=== PATIENT | female | born 1950 | race Caucasian/White ===

== ENCOUNTER 2016-07-03 16:15 | Inpatient (IN) ==
--- NOTE | 2016-07-03 16:21 | Emergency Department Note ---
Disposition Clinical Impression: Influenza A Asthma Qualifiers: Asthma severity: mild intermittent Asthma complication type: with acute exacerbation Qualified Code(s): J45.21 - Mild intermittent asthma with (acute) exacerbation Disposition: Admitted As Inpatient Condition: Fair Referrals: NO,PCP [Primary Care Provider] - Forms: ED Satisfaction Letter SOB HPI - General Chief Complaint: ED Shortness of Breath/Dyspnea Stated Complaint: "fever, sob" Source: patient, EMS Mode of arrival: EMS Nursing Notes Reviewed: Yes Vital Signs Reviewed: Yes - History of Present Illness Pt Subjective Complaint: shortness of breath Onset (ago): week(s) (1) Severity: moderate Consistency/Duration: intermittent, gradually worsening Improves with: oxygen, rest, bronchodilators Worsens with: lying flat Known history of: asthma Associated symptoms: Reports: cough, wheezing. Denies: fever Treatment prior to arrival: oxygen, bronchodilator Cough present: Yes Cough Description: Involuntary Cough Frequency: Intermittent Sputum production: No - Related Data Home Medications Medication Instructions Recorded Confirmed Amiodarone 11/23/14 11/23/14 Carvedilol 11/23/14 11/23/14 Ciclopirox 11/23/14 11/23/14 Desonide 11/23/14 11/23/14 Fluocinonide 11/23/14 11/23/14 Isosorbide Mononitrate 11/23/14 11/23/14 Lipitor 11/23/14 11/23/14 Plavix 11/23/14 11/23/14 TraMADol 11/23/14 11/23/14 Voltaren 11/23/14 11/23/14 HumaLOG 05/22/15 05/22/15 Lantus 05/22/15 Paroxetine 05/22/15 Singulair 05/22/15 Thyroid 05/22/15 Xarelto 05/22/15 Previous Rx's Medication Instructions Recorded MethylPREDNISolone [Medrol] 4 mg PO DAILY 6 Days 05/22/15 Sulfamethoxazole/Trimeth DS 1 each PO BID 7 Days 05/22/15 [Bactrim DS] Allergies Allergy/AdvReac Type Severity Reaction Status Date / Time Amoxicillin [From Augmentin] Allergy Hives Verified 11/23/14 14:53 Barbiturates Allergy Anxiety Verified 11/23/14 14:53 clavulanic acid Allergy Hives Verified 11/23/14 14:53 [From Augmentin] codeine Allergy Anaphylaxis Verified 11/23/14 14:53 Tetracycline Allergy Nausea Verified 11/23/14 14:53 All systems ED: reviewed and negative except as stated. Constitutional: Reports: weakness. Denies: fever, chills Gastrointestinal: Denies: nausea, vomiting Past Medical History - Past Medical History Source: patient, old records reviewed, nursing notes reviewed Medical history: Reports: asthma, diabetes, thyroid disease, valvular heart disease [employer]KING [employer] WORK[employer] history: Reports: non-contributory - Social History Smoking Status: Never smoker Smokeless Tobacco Status: No Alcohol use: Reports: none Physical Exam - General Limitations: no limitations General appearance: alert, in no apparent distress - Head Head exam: atraumatic, normocephalic, normal inspection - Eye Eye exam: Present: normal appearance, PERRL, EOMI - Expanded Eye Exam Pupils: Left: reactive - ENT ENT exam: normal exam, normal oropharynx, mucous membranes moist - Expanded ENT Exam External ear exam: Present: normal external inspection Mouth exam: Present: normal external inspection Teeth exam: Present: normal inspection Throat exam: Present: normal inspection - Neck Neck exam: Present: normal inspection, full ROM, trachea midline - Chest Chest inspection: Present: normal inspection, symmetric chest wall rise - Respiratory Respiratory exam: Present: wheezes (Scattered wheezes rhonchi), prolonged expiratory phase. Absent: respiratory distress - Cardiovascular Cardiovascular exam: Present: tachycardia - Abdominal Exam Abdominal exam: Present: soft, Non-Tender. Absent: tenderness, distention, guarding, rebound, rigidity - Extremities Exam Extremities exam: Present: normal inspection, full ROM. Absent: tenderness, pedal edema - Expanded Upper Extremity Exam Shoulder exam: Present: normal inspection, full ROM Arm exam: Present: normal inspection, full ROM Elbow exam: Present: normal inspection, full ROM Forearm/Wrist exam: Present: normal inspection, full ROM Hand exam: Present: normal inspection, full ROM Vascular exam: Normal: capillary refill, radial pulse - Expanded Lower Extremity Exam Hip/Pelvis exam: Present: normal inspection, full ROM Upper leg exam: Present: normal inspection, full ROM Knee exam: Present: normal inspection, full ROM Lower leg exam: Present: normal inspection, full ROM Ankle exam: Present: normal inspection, full ROM Foot/toe exam: Present: normal inspection, full ROM Neurovascular/Tendon exam: Absent: motor deficit, sensory deficit, tendon deficit - Back Exam Back exam: Present: normal inspection, full ROM. Absent: tenderness - Neurological Exam Neurological exam: Present: alert, oriented X3 - Expanded Neurological Exam Patient oriented to: Present: person, place, time Coma Scale Eye Opening: Spontaneous Coma Scale Motor Response: Obeys Commands Coma Scale Verbal Response: Oriented Coma Scale Total: 15 - Psychiatric Psychiatric exam: Present: normal affect, normal mood - Skin Skin exam: Present: warm, dry, intact, normal color Course Vital Signs Temperature 102.1 F H 07/03/16 16:19 Pulse Rate 119 07/03/16 16:19 Respiratory Rate 22 07/03/16 16:19 Blood Pressure 136/65 07/03/16 16:19 O2 Sat by Pulse Oximetry 94 L 07/03/16 16:19 Temperature 102.1 F H 07/03/16 16:19 Pulse Rate 119 07/03/16 16:19 Respiratory Rate 22 07/03/16 16:19 Blood Pressure 136/65 07/03/16 16:19 O2 Sat by Pulse Oximetry 95 07/03/16 16:19 Oxygen Delivery Oxygen Delivery Nasal Cannula Shortness of Breath/Dyspnea - Differential Diagnosis Likely: acute exacerbation of chronic obstructive airways disease, congestive heart failure, pneumonia, asthma with exacerbation, pulmonary embolism, arrhythmia - Medical Records Medical records reviewed: Yes I reviewed the patient's medical records. - Lab Data Lab results reviewed: Yes I reviewed the patient's lab results. - Radiology Data Radiology results reviewed: Yes I reviewed the patient's radiology results. - EKG Data EKG attestation: Yes I reviewed and interpreted this EKG. EKG shows normal: Reports: sinus rhythm Rate: Reports: tachycardia (128) Rhythm: Reports: NSR, PVC's [place]/QRS: Reports: normal Critical Care Time Critical Care Time: Yes Total Critical Care Time: 35 Attestation: Critical care performed: Time is exclusive of separately billable procedures. Time includes: direct patient care, patient reassessment, coordination of patient care, interpretation of data (laboratory data, radiology data, and respiratory data), review of patient's medical records, medical consultation and documentation of patient care. Procedures included in critical care time: Procedures excluded from critical care time:
[2016-07-03 16:50] LABS: Basophils # 0.1 K/mcL (0.0-0.2); Basophils % 0.6 %; Eosinophils % 0.3 %; Hematocrit 37.4 % (35.3-44.9); Hemoglobin 11.9 g/dL (11.5-15.4); Immature Granulocytes % 0.9 % (0-4); Lymphocytes # 0.7 K/mcL (0.6-4.6); Lymphocytes % 6.7 %; Mean Corpuscular HGB Conc 31.8 g/dL (31.6-35.5); Mean Corpuscular Hemoglobin 26.1 pg (28.0-33.3); Mean Platelet Volume 10.9 fL (9.4-12.4); Monocytes # 1.1 K/mcL (0.0-1.3); Monocytes % 10.9 %; Platelet Count 106 K/mcL (140-400); Red Blood Count 4.56 M/mcL (3.82-4.97); Red Cell Distribution Width 16.8 % (11.5-14.5); Segmented Neutrophils % 80.6 %
[2016-07-03] MEDS ORDERED: Ipratropium/Albuterol Neb 3 ML IH ONE (16:50)
[2016-07-03 17:02] LABS: BUN/Creatinine Ratio 11 (6-26); Blood Urea Nitrogen 8 mg/dL (7-20); Carbon Dioxide 23 mEq/L (19-29); Chloride 94 mEq/L (98-109); Glucose 292 mg/dL (70-99); INR 1.3; Osmolality,Calculated 277 (280-300); Potassium 3.5 mEq/L (3.5-4.5); Prothrombin Time 14.2 Seconds (9.4-12.1); Sodium 129 mEq/L (136-145); eGFR For African Americans > 60 (> 60); eGFR For Non-African Americans > 60 (> 60)
[2016-07-03 17:05] LABS: Activated Partial Thrombo Time 32.7 Seconds (26.0-36.0)
[2016-07-03] MEDS ORDERED: methylPREDNISolone 125 MG/2 ML VIAL IV ONE (17:15)
[2016-07-03] MEDS ORDERED: Aspirin 81 MG TAB.CHEW PO STA (17:18)
[2016-07-03] MEDS ORDERED: Ondansetron 4 MG/2 ML VIAL IVP ONE (17:41)
--- NOTE | 2016-07-03 22:47 | Internal Med History&Physical ---
Date of Encounter: 07/03/16 Time of Encounter: 22:37 Assessment and Plan (1) Asthma Current visit: Yes Status: Acute Acute asthma exacerbation. Likely due to Concomitant infection with influenza virus. No PNEUMONIA IN THE CHEST X-RAY. PATIENT IS FEBRILE AND BP stable. Continue with Tamiflu, continue with management of asthma exacerbation including systemic steroids and nebulizer therapy. Qualifiers: Asthma severity: mild intermittent Asthma complication type: with acute exacerbation Qualified Code(s): J45.21 - Mild intermittent asthma with (acute ) exacerbation (2) Influenza A Current visit: Yes Status: Acute Continue with oxygen therapy when necessary. Continue with Tamiflu. Symptomatic treatment. (3) Elevated troponin Current visit: Yes Status: Acute Mild elevation of troponins, no chest pain. No EKG changes. Patient has history of coronary artery disease and is on anticoagulation with xarelto due to history of atrial fibrillation. Continue monitoring the patient closely. Follow trend of troponin. We will obtain an echocardiogram to evaluate further systolic function. (4) Hyperglycemia Current visit: Yes Status: Acute Insulin therapy. Check A1c. Monitor fingerstick. (5) Hyponatremia Current visit: Yes Status: Acute We will continue monitoring the patient closely. No changes in neurological status. Follow electrolytes daily. Internal Medicine - H&P: HPI Chief complaint: sob Admitted From: Emergency Dept Plans for Post Hospital Care: Home History of present illness: Ms. Armas is a 65 year old female with past medical history of asthma, coronary artery disease, recent dental work, presented to the emergency department complaining of progressive shortness of breath and productive cough, associated with fatigue and generalized weakness. Patient stated that she was having some falls since the last 6 days. Patient denies chills or fever, however states that her shortness of breath was not getting any better. She recently underwent some dental work, has a tooth abscess for which she was on antibiotics, she is significant clindamycin. Patient has never been a smoker, is allergic to penicillin. When she presented to the emergency department she was tachycardic with a heart rate of 114, respiratory rate was 16, oxygen saturation was 97%. Labs revealed a WBC count of 9.9, hemoglobin 11.9, hematocrit 37.4, platelet count was 106,000. Sodium 139, potassium 3.5, chloride 94, WN 8, creatinine 0.74, glucose 292. Troponin was 0.04, the patient denies chest pain. Brain natriuretic peptide was 315. She tested positive for influenza and receive a dose of Tamiflu in the emergency department. She also was given a dose of Solu-Medrol and nebulizer therapy. The patient is alert, awake, oriented. Past Med Surg Social Fam HX - Past Medical History Medical history: asthma, diabetes, thyroid disease, valvular heart disease Psychiatric history: anxiety, depression - Social History Smoking Status: Never smoker Smokeless Tobacco Status: No Alcohol use: none Drug use: none Internal Medicine - H&P: Meds Amiodarone 11/23/14 [History] Carvedilol 11/23/14 [History] Ciclopirox 11/23/14 [History] Desonide 11/23/14 [History] Fluocinonide 11/23/14 [History] Isosorbide Mononitrate 11/23/14 [History] Lipitor 11/23/14 [History] Plavix 11/23/14 [History] TraMADol 11/23/14 [History] Voltaren 11/23/14 [History] HumaLOG 05/22/15 [History] Lantus 05/22/15 [History] MethylPREDNISolone [Medrol] 4 mg PO DAILY 6 Days 05/22/15 [Rx] Paroxetine 05/22/15 [History] Singulair 05/22/15 [History] Sulfamethoxazole/Trimeth DS [Bactrim DS] 1 each PO BID 7 Days 05/22/15 [Rx] Thyroid 05/22/15 [History] Xarelto 05/22/15 [History] Allergies Amoxicillin [From Augmentin] Allergy (Verified 11/23/14 14:53) Hives Barbiturates Allergy (Verified 11/23/14 14:53) Anxiety clavulanic acid [From Augmentin] Allergy (Verified 11/23/14 14:53) Hives codeine Allergy (Verified 11/23/14 14:53) Anaphylaxis Tetracycline Allergy (Verified 11/23/14 14:53) Nausea All Systems PM: A 10-system review of systems was performed and is negative for pertinent findings except as documented above in the HPI. - Constitutional Constitutional: as per HPI, falls, malaise, no chills, no fever(s), no night sweats - EENT Eyes: as per HPI, no change in vision, no discharge, no pain, no photophobia Ears: as per HPI, no ear discharge, no ear pain, no tinnitus Nose, mouth and throat: as per HPI, no dysphagia, no nasal discharge, no neck pain, no sore throat - Breasts Breasts: as per HPI - Cardiovascular Cardiovascular ROS IM: as per HPI, no chest pain, no diaphoresis, no dyspnea, no lightheadedness, no palpitations, no syncope - Respiratory Respiratory: as per HPI, cough, dyspnea, dyspnea on exertion, wheezing, no excessive phlegm production - Gastrointestinal Gastrointestinal: as per HPI, no abdominal pain, no diarrhea, no hematemesis, no hematochezia, no melena, no nausea, no vomiting - Genitourinary Genitourinary: as per HPI, no change in urinary stream, no dysuria, no flank pain, no hematuria Menstruation: as per HPI - Musculoskeletal Musculoskeletal ROS IM: as per HPI, no numbness, no tingling - Integumentary Integumentary IM: no rash, no unusual bruising - Neurological Neurological ROS: as per HPI, no confusion, no convulsions, no focal weakness, no numbness, no tingling, no tremor(s) - Hematologic/Lymphatic Hematologic/Lymphatic: no easy bruising - Constitutional Vitals: Temp Pulse Resp BP Pulse Ox 98.1 F 107 22 110/61 95 07/03/16 19:52 07/03/16 19:52 07/03/16 19:52 07/03/16 19:52 07/03/16 19:52 General appearance: Present: cooperative, mild distress, A&O X 3, pleasant - Head Head exam: Present: atraumatic, normocephalic - Eye Eye exam: Present: PERRL, conjuntiva pink, sclera anicteric Pupils: Present: PERRL - Neck Neck exam general surgery: Present: supple, trachea midline. Absent: lymphadenopathy - Respiratory Respiratory exam: Present: decreased breath sounds, wheezes. Absent: accessory muscle use, rales, rhonchi - Cardiovascular Cardiovascular exam: Present: RRR, +S1, +S2. Absent: diastolic murmur, gallop, rubs, systolic murmur - GI/Abdominal GI/Abdominal exam: Present: normal bowel sounds, soft, no peritoneal signs. Absent: distended, tenderness - Extremities Exam Extremities exam: Present: warm, radial pulses palpable and symetrical. Absent : calf tenderness, cyanotic, pedal edema - Neurological Exam Neurological exam: Present: CN II-XII intact, oriented X3, no focal deficits. Absent: pronater drift, facial droop, speech deficit - Skin Skin exam: Present: dry, intact Internal Med - H&P Results - Labs CBC & Chem 7: 07/03/16 16:37 07/03/16 16:37
[2016-07-03] MEDS ORDERED: Albuterol 2.5 MG/3 ML NEBULIZER IH PRN (23:10)
[2016-07-03] MEDS ORDERED: Acetaminophen 325 MG TABLET PO PRN (23:10)
[2016-07-03] MEDS ORDERED: Ondansetron 4 MG/2 ML VIAL IVP PRN (23:10)
[2016-07-03] MEDS ORDERED: *HR* Morphine 2 MG/ML SYRINGE IVP PRN (23:10)
[2016-07-03] MEDS ORDERED: Naloxone 0.4 MG/ML INJ IVP PRN (23:10)
[2016-07-03] MEDS ORDERED: Dextrose Gel 15 GM PO PRN ×2 (23:29)
[2016-07-03] MEDS ORDERED: D5% in Water 1,000 ML IVC PRN (23:29)
[2016-07-03] MEDS ORDERED: *HR* Dextrose 50 % in Water (Syg) 50 ML SYRINGE IVP PRN (23:29)
[2016-07-04] MEDS: MethylPREDNISolone 40 MG/ML VIAL IVP SCH ×3 (00:30→14:35)
[2016-07-04 01:18] LABS: Hemoglobin A1C 10.1 %
[2016-07-04 01:23] LABS: Alanine Aminotransferase 17 Units/L (0-55); Albumin 2.9 g/dL (3.5-5.0); Albumin/Globulin Ratio 0.7 (1.1-2.2); Alkaline Phosphatase 81 Units/L (38-126); Aspartate Amino Transferase 19 Units/L (5-34); BUN/Creatinine Ratio 12 (6-26); Bilirubin,Total 1.2 mg/dL (0.2-1.2); Blood Urea Nitrogen 13 mg/dL (7-20); Calcium 8.9 mg/dL (8.6-10.8); Carbon Dioxide 22 mEq/L (19-29); Chloride 93 mEq/L (98-109); Globulin 4.1 g/dL (2.4-3.5); Magnesium 1.2 mg/dL (1.6-2.6); Osmolality,Calculated 297 (280-300); Potassium 4.2 mEq/L (3.5-4.5); Sodium 130 mEq/L (136-145); eGFR For African Americans > 60 (> 60); eGFR For Non-African Americans 52 (> 60)
[2016-07-04 01:33] LABS: Glucose 586 mg/dL (70-99)
[2016-07-04] MEDS: Insulin LISPRO 300 UNITS/3 ML VIAL SQ SCH ×3 (03:39→16:37)
[2016-07-04] MEDS ORDERED: Insulin LISPRO 300 UNITS/3 ML VIAL SQ SCH ×3 (07:30→21:00)
[2016-07-04] MEDS ORDERED: *HR* Amiodarone 200 MG TABLET PO SCH (09:00)
[2016-07-04] MEDS ORDERED: Insulin DETEMIR 100 UNIT/ML X5UNITS SQ SCH ×2 (09:00→21:00)
[2016-07-04 09:20] LABS: Basophils % 0.3 %; Hematocrit 41.4 % (35.3-44.9); Hemoglobin 12.9 g/dL (11.5-15.4); Immature Granulocytes % 0.6 % (0-4); Immature Platelets 17.8 % (1.1-6.1); Lymphocytes # 0.8 K/mcL (0.6-4.6); Lymphocytes % 7.9 %; Mean Corpuscular HGB Conc 31.2 g/dL (31.6-35.5); Mean Corpuscular Hemoglobin 26.2 pg (28.0-33.3); Mean Corpuscular Volume 84.1 fL (83.0-100.0); Mean Platelet Volume 11.3 fL (9.4-12.4); Monocytes # 0.5 K/mcL (0.0-1.3); Monocytes % 5.2 %; Neutrophils # 8.2 K/mcL (1.6-8.9); Red Blood Count 4.92 M/mcL (3.82-4.97); Red Cell Distribution Width 17.2 % (11.5-14.5)
[2016-07-04 12:30] LABS: Mean Platelet Volume 10.7 fL (9.4-12.4)
[2016-07-04] MEDS: Oseltamivir Phosphate 30 MG CAPSULE PO SCH ×2 (14:34→22:00)
[2016-07-04] MEDS ORDERED: Perflutren Lipid Microsphere 1.3 ML in 0.9 % Sodium Chloride 8.7 ML IVP ONE (14:47)
--- NOTE | 2016-07-04 16:37 | ECHO - Doppler Report ---
Echo with Imaging Enhancement Agent Name: Cecilia Armas Date of Study: 07/04/2016 Date: 1950 Ht: 66.0 in Medical Record#: [id number] Age: 65 Wt: 285.0 lb Gender: Female BSA: 2.33 Order #: [id number] Location: [facility] Room #: 2NE26 Reading Physician: Cain Germain MD, [facility] Learning Support Aide: BENITO BashirT, [facility] Ordering Physician: Massimo Florentino MD Primary Physician: Arnulfo Arango MD Indications: elvated trops, H/o CHF Impressions: LVEF 60%. There is hypokinesis of the basal inferior wall. All other segments demonstrate normal contractility. Mild concentric left ventricular hypertrophy. Moderate left ventricular diastolic dysfunction. Normal right ventricular size and function. Moderately dilated left atrium. No significant valvular dysfunction. Unable to estimate RVSP due to lack of TR jet. Left Ventricular Wall Motion: Rest Echo Findings The basal inferior wall was hypokinetic. All other wall segments showed normal motion. Findings: Study Quality * Suboptimal echo windows. Echo contrast was used. ECG Findings * Normal sinus rhythm. Left Ventricle * LVEF 60%. There is hypokinesis of the basal inferior wall. All other segments demonstrate normal contractility. * Mild concentric left ventricular hypertrophy. * Moderate left ventricular diastolic dysfunction. Right Ventricle * Normal right ventricular size and function. Left Atrium * Moderately dilated left atrium. Right Atrium * Normal right atrial size. Aorta * Normally sized aortic root. Pericardium * There is no pericardial effusion present. IVC * The IVC is mildly dilated. Aortic Valve * Trileaflet aortic valve. * Mild-moderately sclerotic aortic valve leaflets. * No aortic stenosis. * No aortic regurgitation. Mitral Valve * Moderate mitral annular calcification * No mitral stenosis. * Trace mitral regurgitation. Tricuspid Valve * Tricuspid valve not well visualized. * No tricuspid stenosis. * Trace tricuspid regurgitation. * Unable to estimate RVSP due to lack of TR jet. Pulmonic Valve * Pulmonic valve not well visualized. * No pulmonic stenosis. * No pulmonic regurgitation. History Hypertension Diabetes Hypercholesteremia Family History of CAD History of CAD/PTCA Myocardial Infarction 10/09/2014 a Previous Echo was performed. Contrast: Definity 1.3 ml in 8.7 ml of saline 3 ml. Measurements: BP: 129/ 84 2D Normal Values RVIDd: 3.40 cm IVSd: 1.30 cm 0.6 - 1.0 cm LVIDd: 4.30 cm 3.7 - 5.6 cm LVPWd: 1.20 cm 0.6 - 1.1 cm LVIDs: 3.10 cm 1.5 - 3.6 cm AO: 3.20 cm < 4.0 cm %FS: 27.90 cm >25 % LA volume: 97 Mitral Valve Peak E:1.30 m/sec Peak A:1.51 m/sec E/A Ratio:0.9 Peak E' Lat Andrew:5.17 cm/s Peak E' Med Andrew:5.36 cm/s E/E' Lat Ratio:25.1 E/E' Med Ratio:24.3 Updated by Cain Germain MD, [facility] on 07/04/2016 4:32:52 PM electronically signed on 07/04/2016 4:33:37 PM with status of Final Wall Motion [place]: 1=Normal, 2=Hypokinesis, 3=Akinesis, 4=Dyskinesis, 5=Aneurysmal, 6=Hyperkinetic, X=Not Visualized (Blank)=Missing
[2016-07-04] MEDS ORDERED: *HR* Rivaroxaban 10 MG TABLET PO SCH (17:00)
--- NOTE | 2016-07-04 19:00 | Internal Med Progress Note ---
Date of Encounter: 07/04/16 Time of Encounter: 18:58 - Assessment and plan (1) Asthma exacerbation Current Visit: Yes Status: Acute Assessment and plan: IV Solu-Medrol. We will increase to every 6 hours. Add albuterol inhaled every 4 hours. Continue with albuterol as needed every 2 hours. Restart his home Singulair. (2) Diabetes mellitus type 2, insulin dependent Current Visit: Yes Status: Acute Assessment and plan: Diabetes uncontrolled with glucoses in the 5 and 600s likely exacerbated by high -dose steroids. We will increase the Levemir to 30 units twice a day. Continue with the meal insulin coverage and sliding scale correction schedule. (3) Influenza A Current Visit: Yes Status: Acute Assessment and plan: On Tamiflu. Continue this. Droplet precautions. (4) Elevated troponin Current Visit: Yes Status: Acute Assessment and plan: Likely secondary to viral infection. Troponin trended down to normal. Echocardiogram reveals normal ejection fraction of 60%. (5) Hyperglycemia Current Visit: Yes Status: Acute (6) Hyponatremia Current Visit: Yes Status: Acute Assessment and plan: We will monitor sodium levels with correction of glucose. - Subjective Interval history: Patient reports moderate shortness of breath at rest, slightly improved from yesterday, associated with cough productive of clear, no fever. The symptoms have improved very slightly since yesterday but she is still symptomatic at rest. - Constitutional Vitals: Temp Pulse Resp BP Pulse Ox 97.8 F 100 17 168/93 94 L 07/04/16 16:00 07/04/16 15:00 07/04/16 15:00 07/04/16 15:00 07/04/16 15:00 General appearance: Present: cooperative, mild distress, A&O X 3, pleasant, obese - Eye Eye exam: Present: PERRL, conjuntiva pink, sclera anicteric Pupils: Present: PERRL - Respiratory Respiratory exam: Present: wheezes. Absent: accessory muscle use, rales, rhonchi Additional comments: Bilateral expiratory wheezes - Cardiovascular Cardiovascular exam: Present: RRR, +S1, +S2. Absent: diastolic murmur, gallop, rubs, systolic murmur - GI/Abdominal GI/Abdominal exam: Present: normal bowel sounds, soft, no peritoneal signs. Absent: distended, tenderness - Extremities Exam Extremities exam: Present: warm, radial pulses palpable and symetrical. Absent : calf tenderness, cyanotic, pedal edema - Skin Skin exam: Present: dry, intact Internal Medicine: Result - Labs CBC & Chem 7: 07/04/16 08:21 07/04/16 00:46 Labs: Short CBC 07/04/16 Range/Units 08:21 WBC 9.5 (4.3-11.1) K/mcL Hgb 12.9 (11.5-15.4) g/dL Hct 41.4 (35.3-44.9) % Plt Count TNP Neutrophils # 8.2 (1.6-8.9) K/mcL BMP 07/04/16 00:46 Sodium 130 L Potassium 4.2 Chloride 93 L Carbon Dioxide 22 BUN 13 Creatinine 1.05 Glucose 586 H* Calcium 8.9 Cardiac Enzymes 07/04/16 07/04/16 Range/Units 00:46 06:39 Troponin I 0.03 0.00 (0-0.03) ng/mL Liver Function 07/04/16 Range/Units 00:46 Total Bilirubin 1.2 (0.2-1.2) mg/dL AST 19 (5-34) Units/L ALT 17 (0-55) Units/L Alkaline Phosphatase 81 (38-126) Units/L Albumin 2.9 L (3.5-5.0) g/dL - ABG Interpretation ABG results: PT/INR, D-dimer PT 14.2 Seconds (9.4-12.1) H 07/03/16 16:37 Consult Discharge Plan - Plan Referrals: Arnulfo Arango Jr, MD [Primary Care Provider] -
[2016-07-04] MEDS: Albuterol 2.5 MG/3 ML NEBULIZER IH SCH ×3 (21:00→23:48)
[2016-07-04] MEDS: Insulin DETEMIR 100 UNIT/ML X5UNITS SQ SCH (21:53)
[2016-07-04] MEDS: Aspirin Enteric Coated 81 MG Tablet PO SCH (21:54)
[2016-07-05] MEDS: MethylPREDNISolone 40 MG/ML VIAL IVP SCH ×3 (00:18→12:29)
[2016-07-05] MEDS: Albuterol 2.5 MG/3 ML NEBULIZER IH SCH ×4 (04:16→14:49)
[2016-07-05] MEDS ORDERED: traMADol 50 MG TABLET PO PRN (05:01)
--- NOTE | 2016-07-05 06:19 | Electrocardiograph Report ---
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
[2016-07-05 06:50] VITALS: BP 149/83
[2016-07-05] MEDS: Insulin LISPRO 300 UNITS/3 ML VIAL SQ SCH ×2 (08:21→12:25)
[2016-07-05] MEDS: Oseltamivir Phosphate 30 MG CAPSULE PO SCH (08:22)
[2016-07-05] MEDS: Aspirin Enteric Coated 81 MG Tablet PO SCH (08:23)
[2016-07-05] MEDS: Insulin DETEMIR 100 UNIT/ML X5UNITS SQ SCH (08:25)
[2016-07-05 08:46] LABS: BUN/Creatinine Ratio 29 (6-26); Blood Urea Nitrogen 26 mg/dL (7-20); Calcium 9.5 mg/dL (8.6-10.8); Carbon Dioxide 25 mEq/L (19-29); Chloride 99 mEq/L (98-109); Glucose 399 mg/dL (70-99); Osmolality,Calculated 305 (280-300); Potassium 4.3 mEq/L (3.5-4.5); Sodium 137 mEq/L (136-145); eGFR For African Americans > 60 (> 60); eGFR For Non-African Americans > 60 (> 60)
[2016-07-05] MEDS ORDERED: Isosorbide MONOnitrate (24 HR) 60 MG TAB.ER.24H PO SCH (09:00)
[2016-07-05 09:53] LABS: Basophils % 0.1 %; Hematocrit 38.1 % (35.3-44.9); Hemoglobin 11.7 g/dL (11.5-15.4); Immature Granulocytes % 1.2 % (0-4); Immature Platelets 10.9 % (1.1-6.1); Lymphocytes # 0.8 K/mcL (0.6-4.6); Lymphocytes % 5.4 %; Mean Corpuscular HGB Conc 30.7 g/dL (31.6-35.5); Mean Corpuscular Hemoglobin 25.9 pg (28.0-33.3); Mean Corpuscular Volume 84.3 fL (83.0-100.0); Monocytes # 0.6 K/mcL (0.0-1.3); Monocytes % 3.8 %; Red Blood Count 4.52 M/mcL (3.82-4.97); Red Cell Distribution Width 17.1 % (11.5-14.5); Segmented Neutrophils % 89.5 %
[2016-07-05 10:04] LABS: Mean Platelet Volume 10.1 fL (9.4-12.4)
--- NOTE | 2016-07-05 13:01 | Discharge Summary ---
Date of Encounter: 07/05/16 Time of Encounter: 12:55 - Discharge Diagnosis (1) Asthma exacerbation Priority: Primary Status: Acute (2) Diabetes mellitus type 2, insulin dependent Priority: Secondary Status: Acute (3) Influenza A Priority: Secondary Status: Acute (4) Elevated troponin Priority: Secondary Status: Acute (5) Hyperglycemia Priority: Secondary Status: Acute (6) Hyponatremia Priority: Secondary Status: Acute - Discharge Medications Prescriptions: Albuterol Neb [Proventil Neb] 2.5 mg IH Q4HR #60 inhsol Oseltamivir Phosphate [Tamiflu] 30 mg PO BID #6 capsule PredniSONE [Prednisone] 40 mg PO DAILY #18 tab.ds.pk Home Medications: Atorvastatin Calcium [Lipitor] 80 mg PO DAILY 11/23/14 [History] Carvedilol 3.125 mg PO BID 11/23/14 [History] Tramadol HCl [Ultram] 50 - 100 mg PO QID 11/23/14 [History] Levothyroxine [Synthroid] 50 mcg PO DAILY 05/22/15 [History] Montelukast [Singulair] 10 mg PO DAILY 05/22/15 [History] Paroxetine HCl [Paxil] 20 mg PO DAILY 05/22/15 [History] Rivaroxaban [Xarelto] 20 mg PO DAILY 05/22/15 [History] Albuterol Sulfate [Ventolin Hfa] 1 puff IH Q6H 07/04/16 [History] Aspirin [Lo-Dose Aspirin EC] 81 mg PO DAILY 07/04/16 [History] Cholecalciferol (D-3) [Vitamin D] 1,000 unit PO DAILY 07/04/16 [History] Cyclobenzaprine [Flexeril] 20 mg PO HS 07/04/16 [History] Insulin LISPRO [HumaLOG] 40 units SQ TIDWM 07/04/16 [History] Isosorbide MONOnitrate (24 HR) [Imdur] 60 mg PO DAILY 07/04/16 [History] Lansoprazole [Prevacid] 30 mg PO DAILY 07/04/16 [History] Multivitamin,Ther and Minerals [Super Theravite-M] 1 tab PO DAILY 07/04/16 [ History] Potassium Chloride [K-Tab ER] 40 meq PO DAILY 07/04/16 [History] Vitamin B Complex [B Complex] 1 tab PO DAILY 07/04/16 [History] Albuterol Neb [Proventil Neb] 2.5 mg IH Q4HR #60 inhsol 07/05/16 [Rx] Oseltamivir Phosphate [Tamiflu] 30 mg PO BID #6 capsule 07/05/16 [Rx] PredniSONE [Prednisone] 40 mg PO DAILY #18 tab.ds.pk 07/05/16 [Rx] Allergies/Adverse Reactions: Allergies Amoxicillin [From Augmentin] Allergy (Verified 11/23/14 14:53) Hives Barbiturates Allergy (Verified 11/23/14 14:53) Anxiety clavulanic acid [From Augmentin] Allergy (Verified 11/23/14 14:53) Hives codeine Allergy (Verified 11/23/14 14:53) Anaphylaxis Tetracycline Allergy (Verified 11/23/14 14:53) Nausea Procedures/tests Complete & Pending: Procedures Performed prior 72 hours Category Date Time Status EV echocardiogram w enhance Routine Y 07/04/16 08:00 Completed Date of admission: 07/03/16 23:10 Primary care physician: Arnulfo Arango Jr, MD - Patient Status Disposition: Home, Self-Care Condition: Fair Functional capacity at discharge: independent ambulation Overall status at discharge: patient is progressing back to baseline - Discharge Instructions Follow Up With: Arnulfo Arango Jr, MD [Primary Care Provider] - (One to two weeks after discharge.) Natalee Krishnan DO [Partnered Physician] - () - Diet and Activity Activity: increase activity as tolerated Diet: diabetic diet, low fat, low cholesterol, low salt diet Hospital course: Hospital presentation: Ms. Armas is a 65 year old female with past medical history of asthma, coronary artery disease, recent dental work, presented to the emergency department complaining of progressive shortness of breath and productive cough, associated with fatigue and generalized weakness. Patient stated that she was having some falls since the last 6 days. Patient denies chills or fever, however states that her shortness of breath was not getting any better. She recently underwent some dental work, has a tooth abscess for which she was on antibiotics, she is significant clindamycin. Patient has never been a smoker, is allergic to penicillin. When she presented to the emergency department she was tachycardic with a heart rate of 114, respiratory rate was 16, oxygen saturation was 97%. Labs revealed a WBC count of 9.9, hemoglobin 11.9, hematocrit 37.4, platelet count was 106,000. Sodium 139, potassium 3.5, chloride 94, WN 8, creatinine 0.74, glucose 292. Troponin was 0.04, the patient denies chest pain. Brain natriuretic peptide was 315. She tested positive for influenza and receive a dose of Tamiflu in the emergency department. She also was given a dose of Solu-Medrol and nebulizer therapy. Hospital course: She was admitted to the medical service. She was treated with IV methylprednisolone and oral Tamiflu. She was maintained on a pullman car clerk. She had follow-up troponin level which was 0.0. She had an echocardiogram which revealed an ejection fraction of 60% and mild hypokinesis of the inferior wall. Moderate diastolic dysfunction. She required multiple doses of inhaled albuterol to control her asthma symptoms, but currently reports significant improvement of shortness of breath and decreasing wheezing. She is breathing comfortably on room air her oxygen saturation is within normal limits. Her diabetes is poorly controlled and was rampant during this admission due to treatment with high-dose steroids. She received insulin long- acting and short-acting pre-meal, and coverage. Her hemoglobin A1c is 10.1. She will be discharged home to complete 5 days of Tamiflu. - Time Spent with Patient Total time spent providing and/or coordinating discharge services: - Constitutional Vitals: Temp Pulse Resp BP Pulse Ox 97.4 F L 78 18 149/83 95 07/05/16 06:46 07/05/16 06:46 07/05/16 06:46 07/05/16 06:46 07/05/16 09:00 General appearance: Present: cooperative, mild distress, A&O X 3, pleasant, obese - Respiratory Respiratory exam: Present: wheezes (Scattered fine expiratory wheezes bilaterally). Absent: accessory muscle use, rales, rhonchi - Cardiovascular Cardiovascular exam: Present: RRR, +S1, +S2. Absent: diastolic murmur, gallop, rubs, systolic murmur - GI/Abdominal GI/Abdominal exam: Present: normal bowel sounds, soft, no peritoneal signs. Absent: distended, tenderness
--- NOTE | 2016-07-06 08:11 | Electrocardiograph Report ---
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
== END 2016-07-05 16:15 | disposition home or self-care (01) | DRG 202 ==
LOC: EMEROO 16:15 → 2NENU 16:15
PROVIDERS: ADMIT Nurse Practitioner Family; ATTEND Internal Medicine

== ENCOUNTER 2016-07-13 20:13 | Inpatient (IN) ==
--- NOTE | 2016-07-13 20:59 | Emergency Department Note ---
Disposition Clinical Impression: Atrial fibrillation with RVR, Hyponatremia, Elevated troponin Disposition: Admitted As Inpatient Condition: Good Time of Disposition: 21:16 Arrhythmia/Palpitations HPI - General Chief Complaint: ED Arrhythmia/Palpitations Stated Complaint: A-FIB Time Seen by Provider: 07/13/16 20:26 Source: EMS Limitations: no limitations Nursing Notes Reviewed: Yes Vital Signs Reviewed: Yes - History of Present Illness HPI Narrative: Patient is a 65-year-old female who presents to the [facility] ED with a chief complaint of generalized weakness. Patient states her symptoms started approximately 2 weeks ago with the flu. She was diagnosed with influenza A. States she has just felt generally weak and over the last few days has had exertional weakness. Denies any nausea, vomiting, fever or chills. No chest pain. Patient has had some shortness of breath with this. No abdominal pain. No problems with urination or bowel movements. Patient was initially seen at the urgent care on [facility] and sent over when she was found to be in a fib with rvr. Patient denies any prior history of this, however, she is on xarelto ever since an incident that happened 2 years ago while she was getting her heart catheterization and stent placement. States she has been on this blood thinner ever since then. Apparently, she had gone into atrial fibrillation during this procedure but had converted spontaneously. Patient follows with car shunter Dr. Arreola. Pt Subjective Complaint: atrial fibrillation Onset (ago): unknown Duration: constant Severity: moderate Context: occurred during exertion Arrhythmia History: atrial fibrillation (once during stent placement) Associated symptoms: Reports: shortness of breath. Denies: chest pain, nausea, vomiting, cough - Related Data Home Medications Medication Instructions Recorded Confirmed Atorvastatin Calcium [Lipitor] 80 mg PO DAILY 11/23/14 07/13/16 Carvedilol 3.125 mg PO BID 11/23/14 07/13/16 Tramadol HCl [Ultram] 50 - 100 mg PO QID 11/23/14 07/13/16 Levothyroxine [Synthroid] 50 mcg PO DAILY 05/22/15 07/13/16 Montelukast [Singulair] 10 mg PO DAILY 05/22/15 07/13/16 Paroxetine HCl [Paxil] 20 mg PO DAILY 05/22/15 07/13/16 Rivaroxaban [Xarelto] 20 mg PO DAILY 05/22/15 07/13/16 Albuterol Sulfate [Ventolin Hfa] 1 puff IH Q6H PRN 07/04/16 07/13/16 Aspirin [Lo-Dose Aspirin EC] 81 mg PO DAILY 07/04/16 07/13/16 Cyclobenzaprine [Flexeril] 20 mg PO HS 07/04/16 07/13/16 Insulin LISPRO [HumaLOG] 40 units SQ TIDWM 07/04/16 07/13/16 Isosorbide MONOnitrate (24 HR) 60 mg PO DAILY 07/04/16 07/13/16 [Imdur] Potassium Chloride [K-Tab ER] 40 meq PO DAILY 07/04/16 07/13/16 Ciclopirox Olamine [Ciclopirox] 1 appl TP BID 07/13/16 07/13/16 PredniSONE [Prednisone] 40 mg PO AD 07/13/16 07/13/16 Previous Rx's Medication Instructions Recorded Albuterol Neb [Proventil Neb] 2.5 mg IH Q4HR #60 inhsol 07/05/16 Allergies Allergy/AdvReac Type Severity Reaction Status Date / Time Amoxicillin [From Augmentin] Allergy Hives Verified 07/13/16 20:49 Barbiturates Allergy Anxiety Verified 07/13/16 20:49 clavulanic acid Allergy Hives Verified 07/13/16 20:49 [From Augmentin] codeine Allergy Anaphylaxis Verified 07/13/16 20:49 Tetracycline Allergy Nausea Verified 07/13/16 20:49 All systems ED: reviewed and negative except as stated. Past Medical History - Past Medical History Attestation: Yes The following information was validated with the patient. Source: patient Medical history: Reports: asthma, atrial fibrillation, coronary artery disease, diabetes, myocardial infarction, other Psychiatric history: Reports: anxiety, depression PILOT SUBMERSIBLE history: Reports: non-contributory - Social History Smoking Status: Never smoker Smokeless Tobacco Status: No Alcohol use: Reports: none Drug use: Reports: none Physical Exam - General Limitations: no limitations General appearance: alert - Head Head exam: atraumatic, normocephalic, normal inspection - Eye Eye exam: Present: normal appearance, PERRL, EOMI - ENT ENT exam: normal exam, normal oropharynx, mucous membranes moist - Neck Neck exam: Present: normal inspection, full ROM, trachea midline - Chest Chest inspection: Present: normal inspection, symmetric chest wall rise - Respiratory Respiratory exam: Present: normal lung sounds bilaterally - Cardiovascular Cardiovascular exam: Present: tachycardia, irregular rhythm - Abdominal Exam Abdominal exam: Present: soft, Non-Tender. Absent: tenderness, distention, guarding, rebound, rigidity - Extremities Exam Extremities exam: Present: normal inspection, full ROM. Absent: tenderness, pedal edema - Back Exam Back exam: Present: normal inspection, full ROM. Absent: tenderness - Neurological Exam Neurological exam: Present: alert, oriented X3 - Psychiatric Psychiatric exam: Present: normal affect, normal mood - Skin Skin exam: Present: warm, dry, intact, normal color Course Course Narrative: Patient seen and examined. Atrial fibrillation with RVR. Patient states this is new for her though she is on xarelto for what seems like a similar incident a few years back. Cardiopulmonary workup initiated. We will give 20 mg IV bolus Cardizem. We will start a drip if it does not improve. We will likely admit to hospitalist for A. fib with RVR. - Reevaluation(s) Reevaluation #1: Patient's lab work shows elevated troponin of 0.08. Chest x-ray shows mild pulmonary edema. Also hyponatremia with a sodium of 129. 1 L fluid bolus ordered. After IV Cardizem bolus, patient continues to be in A. fib with RVR with a rate in the 1:15. Cardizem drip ordered. We will admit for atrial fibrillation with RVR. Hospitalist paged. Time: 22:32 Vital Signs Temperature 99.7 F H 07/13/16 20:21 Pulse Rate 124 07/13/16 20:21 Respiratory Rate 20 07/13/16 20:21 Blood Pressure 133/95 07/13/16 20:21 O2 Sat by Pulse Oximetry 94 07/13/16 20:21 Temperature 97.9 F 07/14/16 01:22 Pulse Rate 88 07/14/16 01:22 Respiratory Rate 18 07/14/16 01:22 Blood Pressure 104/69 07/14/16 01:22 O2 Sat by Pulse Oximetry 93 07/14/16 01:22 Oxygen Delivery Oxygen Delivery Nasal Cannula Arrhythmia/Palpitations - Medical Records Medical records reviewed: Yes I reviewed the patient's medical records. - Lab Data Lab results reviewed: Yes I reviewed the patient's lab results. Result diagrams: 07/13/16 20:47 07/13/16 20:47 Lab Results 07/13/16 07/13/16 07/13/16 Range/Units 20:47 20:47 20:47 WBC 19.4 H (4.3-11.1) K/mcL RBC 4.53 (3.82-4.97) M/mcL Hgb 11.7 (11.5-15.4) g/dL Hct 37.4 (35.3-44.9) % MCV 82.6 L (83.0-100.0) fL MCH 25.8 L (28.0-33.3) pg MCHC 31.3 L (31.6-35.5) g/dL RDW 16.6 H (11.5-14.5) % Plt Count 243 (140-400) K/mcL MPV 10.1 (9.4-12.4) fL Immature Gran % 2.1 (0-4) % Seg Neutrophils % 82.0 % Lymphocytes % 8.8 % Monocytes % 6.3 % Eosinophils % 0.4 % Basophils % 0.4 % Neutrophils # 15.9 H (1.6-8.9) K/mcL Lymphocytes # 1.7 (0.6-4.6) K/mcL Monocytes # 1.2 (0.0-1.3) K/mcL Eosinophils # 0.1 (0.0-0.6) K/mcL Basophils # 0.1 (0.0-0.2) K/mcL Nucleated RBCs/100 WBC 0.2 H (0) /100 WBC Immature Plt Fraction 13.5 H (1.1-6.1) % PT 15.8 H (9.4-12.1) Seconds INR 1.5 APTT 28.0 (26.0-36.0) Seconds Sodium 129 L (136-145) mEq/L Potassium 4.1 (3.5-4.5) mEq/L Chloride 93 L (98-109) mEq/L Carbon Dioxide 22 (19-29) mEq/L BUN 10 (7-20) mg/dL Creatinine 0.88 (0.57-1.11) mg/dL Est GFR ( Amer) > 60 (> 60) Est GFR (Non-Af Amer) > 60 (> 60) BUN/Creatinine Ratio 11 (6-26) Glucose 393 H (70-99) mg/dL Calculated Osmolality 283 (280-300) Calcium 9.0 (8.6-10.8) mg/dL Magnesium 1.4 L (1.6-2.6) mg/dL Troponin I (0-0.03) ng/mL TSH 0.686 (0.350-4.840) mcIU/mL 07/13/16 Range/Units 20:47 WBC (4.3-11.1) K/mcL RBC (3.82-4.97) M/mcL Hgb (11.5-15.4) g/dL Hct (35.3-44.9) % MCV (83.0-100.0) fL MCH (28.0-33.3) pg MCHC (31.6-35.5) g/dL RDW (11.5-14.5) % Plt Count (140-400) K/mcL MPV (9.4-12.4) fL Immature Gran % (0-4) % Seg Neutrophils % % Lymphocytes % % Monocytes % % Eosinophils % % Basophils % % Neutrophils # (1.6-8.9) K/mcL Lymphocytes # (0.6-4.6) K/mcL Monocytes # (0.0-1.3) K/mcL Eosinophils # (0.0-0.6) K/mcL Basophils # (0.0-0.2) K/mcL Nucleated RBCs/100 WBC (0) /100 WBC Immature Plt Fraction (1.1-6.1) % PT (9.4-12.1) Seconds INR APTT (26.0-36.0) Seconds Sodium (136-145) mEq/L Potassium (3.5-4.5) mEq/L Chloride (98-109) mEq/L Carbon Dioxide (19-29) mEq/L BUN (7-20) mg/dL Creatinine (0.57-1.11) mg/dL Est GFR ( Amer) (> 60) Est GFR (Non-Af Amer) (> 60) BUN/Creatinine Ratio (6-26) Glucose (70-99) mg/dL Calculated Osmolality (280-300) Calcium (8.6-10.8) mg/dL Magnesium (1.6-2.6) mg/dL Troponin I 0.08 H* (0-0.03) ng/mL TSH (0.350-4.840) mcIU/mL - Radiology Data Radiology results reviewed: Yes I reviewed the patient's radiology results. Chest X-Ray 07/13/16 20:26 IMPRESSION: 1. Re- demonstration of cardiomegaly and mild central pulmonary vascular congestion without overt pulmonary edema. D/ / Silvano Correa MD / Silvano Correa MD Interpreting Provider: Silvano Correa MD - EKG Data EKG attestation: Yes I reviewed and interpreted this EKG. EKG results narrative: EKG done at 2032 shows atrial fibrillation with RVR. No acute ST elevation or depression. Prominent Q-wave in lead 3. Attestation Statement - Attestation Attestation: I, Umesh Henson, examined this patient and my medical decision-making was reviewed with the PODODERMATOLOGIST/PA/Advanced Practice Nurse/Resident Physician. I agree with the documented findings, disposition and treatment plan as described except to the extent set forth below. 65-year-old female presents with increasing weakness and shortness of breath with exertion over the past few weeks. Patient had a history of age for evaluation after a catheterization however she states she is not usually in atrial fibrillation. She does however take Xarelto. Pt has an EKG today which shows age fibrillation with a rate of 120 without evidence of STEMI. Patient had mild elevation of her troponin the emergency department. She is given aspirin. Patient given Cardizem bolus and then Cardizem drip with mild improvement of symptoms. Patient comfortable with plan for admission to the hospital follow up with cardiology.
[2016-07-13 21:10] LABS: Basophils # 0.1 K/mcL (0.0-0.2); Basophils % 0.4 %; Eosinophils # 0.1 K/mcL (0.0-0.6); Eosinophils % 0.4 %; Hematocrit 37.4 % (35.3-44.9); Hemoglobin 11.7 g/dL (11.5-15.4); Immature Granulocytes % 2.1 % (0-4); Immature Platelets 13.5 % (1.1-6.1); Lymphocytes # 1.7 K/mcL (0.6-4.6); Lymphocytes % 8.8 %; Mean Corpuscular HGB Conc 31.3 g/dL (31.6-35.5); Mean Corpuscular Hemoglobin 25.8 pg (28.0-33.3); Mean Corpuscular Volume 82.6 fL (83.0-100.0); Mean Platelet Volume 10.1 fL (9.4-12.4); Monocytes # 1.2 K/mcL (0.0-1.3); Monocytes % 6.3 %; Neutrophils # 15.9 K/mcL (1.6-8.9); Nucleated Red Blood Cells 0.2 /100 WBC (0); Red Blood Count 4.53 M/mcL (3.82-4.97); Red Cell Distribution Width 16.6 % (11.5-14.5)
[2016-07-13 21:14] LABS: INR 1.5; Prothrombin Time 15.8 Seconds (9.4-12.1)
[2016-07-13 21:19] LABS: BUN/Creatinine Ratio 11 (6-26); Blood Urea Nitrogen 10 mg/dL (7-20); Carbon Dioxide 22 mEq/L (19-29); Chloride 93 mEq/L (98-109); Glucose 393 mg/dL (70-99); Magnesium 1.4 mg/dL (1.6-2.6); Osmolality,Calculated 283 (280-300); Potassium 4.1 mEq/L (3.5-4.5); Sodium 129 mEq/L (136-145); eGFR For African Americans > 60 (> 60); eGFR For Non-African Americans > 60 (> 60)
[2016-07-13 21:41] LABS: Thyroid Stimulating Hormone 0.686 mcIU/mL (0.350-4.840)
[2016-07-13] MEDS ORDERED: 0.9 % Sodium Chloride 1,000 ML IVC ONE (21:41)
[2016-07-13] MEDS ORDERED: Aspirin 81 MG TAB.CHEW PO ONE (21:41)
[2016-07-13 22:24] LABS: Platelet Count 243 K/mcL (140-400)
--- NOTE | 2016-07-14 02:48 | Internal Med History&Physical ---
Date of Encounter: 07/14/16 Time of Encounter: 02:48 Assessment and Plan (1) Atrial fibrillation with RVR Current visit: Yes Status: Acute Pt has h/o paroxysmal A fib, now with RVR. Continue diltiazem drip, which is being titrated per protocol. She recently had echocardiogram, which showed LVEF of 60%; moderate diastolic dysfunction; hypokinetic basal inferior wall. TSH is normal. Cardiology consult, for further management. NPO, if vp marketing prefers DC cardioversion. Continue anticoagulation. (2) Elevated troponin Current visit: Yes Status: Acute Likely secondary to A fib RVR. Monitor (3) Diastolic CHF Current visit: Yes Status: Chronic With acute exacerbation, due ot A Fib RVR. IV lasix Qualifiers: Congestive heart failure chronicity: acute on chronic Qualified Code(s): I50.33 - Acute on chronic diastolic (congestive) heart failure (4) Diabetes mellitus type 2, insulin dependent Current visit: Yes Status: Chronic Sliding scale insulin and reduce home dosing - apparently had hypoglycemia yesterday. (5) General weakness Current visit: Yes Status: Acute Likely secondary to A fib with RVR; Diastolic CHF and recent influenza infection. Will consult physical therapy (6) CAD (coronary artery disease) Current visit: Yes Status: Chronic Continue home medications Qualifiers: Coronary Disease-Associated Artery/Lesion type: [place] artery [place] vs. transplanted heart: [place] heart Associated angina: without angina Qualified Code(s): I25.10 - Atherosclerotic heart disease of [place] coronary artery without angina pectoris (7) Leucocytosis Current visit: Yes Status: Acute Likely secondary to steroid use. Pt is on prednisone, following her recent asthma exacerbation. Monitor WBC count. Qualifiers: Leukocytosis type: unspecified Qualified Code(s): D72.829 - Elevated white blood cell count, unspecified (8) Chronic anticoagulation Current visit: Yes Status: Chronic Continue xarelto Internal Medicine - H&P: HPI Chief complaint: generalized weakness Admitted From: Emergency Dept Plans for Post Hospital Care: Home History of present illness: Ms. Armas is a 65 year old female with Past medical history significant for asthma, atrial fibrillation - on anticoagulation with xarelto, coronary artery disease s/p [place], diabetes mellitus. She was admitted to this hospital on 2016, with influenza A infection/exacerbation of asthma and was treated with tamiflu. She feels generally weak since that time. She started to use her husbands walker. When she did not use the walker, she apparently had multiple falls, without loss of consciousness. Reports feeling dizzy and lightheaded, on standing. She reports shortness of breath on exertion. Denies significant cough or expectoration. Denies fever or chills. Denies chest pain, palpitations, abdominal pain, dysuria, hematuria, diarrhea. She reports polyuria , fluctuations in her blood glucose control. She was evaluated in the emergency department and was noted to have atrial fibrillation with RVR. She was given IV fluid bolus and started on diltiazem infusion and is admitted to the hospitalist service for further management. Family Hx reviewed and non-contributory to current admission. Past Med Surg Social Fam HX - Past Medical History Medical history: asthma, atrial fibrillation, coronary artery disease, diabetes , myocardial infarction, other Psychiatric history: anxiety, depression - Past Surgical History Surgical History: hysterectomy - Social History Smoking Status: Never smoker Smokeless Tobacco Status: No Alcohol use: none Drug use: none Internal Medicine - H&P: Meds Atorvastatin Calcium [Lipitor] 80 mg PO DAILY 11/23/14 [History] Carvedilol 3.125 mg PO BID 11/23/14 [History] Tramadol HCl [Ultram] 50 - 100 mg PO QID 11/23/14 [History] Levothyroxine [Synthroid] 50 mcg PO DAILY 05/22/15 [History] Montelukast [Singulair] 10 mg PO DAILY 05/22/15 [History] Paroxetine HCl [Paxil] 20 mg PO DAILY 05/22/15 [History] Rivaroxaban [Xarelto] 20 mg PO DAILY 05/22/15 [History] Albuterol Sulfate [Ventolin Hfa] 1 puff IH Q6H PRN 07/04/16 [History] Aspirin [Lo-Dose Aspirin EC] 81 mg PO DAILY 07/04/16 [History] Cyclobenzaprine [Flexeril] 20 mg PO HS 07/04/16 [History] Insulin LISPRO [HumaLOG] 40 units SQ TIDWM 07/04/16 [History] Isosorbide MONOnitrate (24 HR) [Imdur] 60 mg PO DAILY 07/04/16 [History] Potassium Chloride [K-Tab ER] 40 meq PO DAILY 07/04/16 [History] Albuterol Neb [Proventil Neb] 2.5 mg IH Q4HR #60 inhsol 07/05/16 [Rx] Ciclopirox Olamine [Ciclopirox] 1 appl TP BID 07/13/16 [History] PredniSONE [Prednisone] 40 mg PO AD 07/13/16 [History] Allergies Amoxicillin [From Augmentin] Allergy (Verified 07/13/16 20:49) Hives Barbiturates Allergy (Verified 07/13/16 20:49) Anxiety clavulanic acid [From Augmentin] Allergy (Verified 07/13/16 20:49) Hives codeine Allergy (Verified 07/13/16 20:49) Anaphylaxis Tetracycline Allergy (Verified 07/13/16 20:49) Nausea All Systems PM: A 10-system review of systems was performed and is negative for pertinent findings except as documented above in the HPI. - Constitutional Vitals: Temp Pulse Resp BP Pulse Ox 97.9 F 88 18 104/69 93 07/14/16 01:22 07/14/16 01:22 07/14/16 01:22 07/14/16 01:22 07/14/16 01:22 Exam: General: Not in acute distress at the time of my evaluation HEENT: Oral mucosa is moist. No conjunctival palor or scleral icterus Neck: No obvious neck swellings Lungs: Bilateral basal crackles present Cardiac: Irregular rhythm. No significant murmurs Abdomen: Soft, non tender. Bowel sounds present Genitourinary: No vides catheter Neurological: Alert and oriented. No gross localizing deficits Psych: Not aggressive or agitated Extremities: B/L leg edema present Skin: No generalized rash Internal Med - H&P Results - Labs CBC & Chem 7: 07/14/16 03:42 07/14/16 03:42 - EKG Data -: EKG Interpreted by Myself - EKG Data EKG comments: Atrial fibrillation with rapid response, heart rate 120. Q waves in lead III. 07/14/16 06:54 - Impressions ITS Impressions Chest X-Ray 07/13/16 20:26 IMPRESSION: 1. Re- demonstration of cardiomegaly and mild central pulmonary vascular congestion without overt pulmonary edema. D/ / Silvano Correa MD / Silvano Correa MD Interpreting Provider: Silvano Correa MD
[2016-07-14] MEDS ORDERED: Naloxone 0.4 MG/ML INJ IVP PRN (02:49)
[2016-07-14] MEDS ORDERED: Furosemide 20 MG/2 ML VIAL IVP ONE (02:55)
[2016-07-14 04:07] LABS: Hemoglobin 12.1 g/dL (11.5-15.4); Nucleated Red Blood Cells 0.2 /100 WBC (0)
[2016-07-14 04:09] LABS: Basophils # 0.1 K/mcL (0.0-0.2); Basophils % 0.4 %; Eosinophils # 0.1 K/mcL (0.0-0.6); Eosinophils % 0.4 %; Immature Granulocytes % 2.2 % (0-4); Lymphocytes # 1.4 K/mcL (0.6-4.6); Lymphocytes % 8.5 %; Mean Corpuscular Hemoglobin 25.8 pg (28.0-33.3); Mean Corpuscular Volume 83.2 fL (83.0-100.0); Mean Platelet Volume 11.5 fL (9.4-12.4); Monocytes # 0.4 K/mcL (0.0-1.3); Monocytes % 2.2 %; Neutrophils # 14.6 K/mcL (1.6-8.9); Red Blood Count 4.69 M/mcL (3.82-4.97); Red Cell Distribution Width 16.9 % (11.5-14.5); Segmented Neutrophils % 86.3 %
[2016-07-14] MEDS ORDERED: 0.9 % Sodium Chloride 1,000 ML ONE (04:11)
[2016-07-14 04:21] LABS: Alanine Aminotransferase 17 Units/L (0-55); Albumin 2.5 g/dL (3.5-5.0); Albumin/Globulin Ratio 0.6 (1.1-2.2); Alkaline Phosphatase 101 Units/L (38-126); Aspartate Amino Transferase 15 Units/L (5-34); BUN/Creatinine Ratio 12 (6-26); Bilirubin,Total 1.8 mg/dL (0.2-1.2); Blood Urea Nitrogen 10 mg/dL (7-20); Calcium 8.9 mg/dL (8.6-10.8); Carbon Dioxide 22 mEq/L (19-29); Chloride 95 mEq/L (98-109); Globulin 4.5 g/dL (2.4-3.5); Glucose 304 mg/dL (70-99); Osmolality,Calculated 282 (280-300); Potassium 3.8 mEq/L (3.5-4.5); Sodium 131 mEq/L (136-145); eGFR For African Americans > 60 (> 60); eGFR For Non-African Americans > 60 (> 60)
[2016-07-14 05:54] LABS: Platelet Count 175 K/mcL (140-400)
[2016-07-14] MEDS ORDERED: Dextrose Gel 15 GM PO PRN ×2 (06:06)
[2016-07-14] MEDS ORDERED: *HR* Dextrose 50 % in Water (Syg) 50 ML SYRINGE IVP PRN (06:06)
[2016-07-14] MEDS ORDERED: D5% in Water 1,000 ML IVC PRN (06:06)
[2016-07-14] MEDS: Insulin LISPRO 300 UNITS/3 ML VIAL SQ SCH ×5 (07:30→22:55)
[2016-07-14] MEDS: Aspirin Enteric Coated 81 MG Tablet PO SCH (08:38)
[2016-07-14] MEDS: Isosorbide MONOnitrate (24 HR) 60 MG TAB.ER.24H PO SCH (08:38)
[2016-07-14] MEDS: *HR* Rivaroxaban 10 MG TABLET PO SCH (08:38)
[2016-07-14] MEDS ORDERED: predniSONE 10 MG TABLET PO SCH (09:00)
[2016-07-14] MEDS ORDERED: traMADol 50 MG TABLET PO SCH (09:00)
--- NOTE | 2016-07-14 09:17 | Cardiology Consult Note ---
Date of Encounter: 07/14/16 Time of Encounter: 09:00 Assessment and Plan (1) Atrial fibrillation with rapid ventricular response Current Visit: No Status: Acute Known hx of PAF on Xarelto; RVR in the setting of URI/influenza A Anticipate difficulty with rate control with acute illness. Telemetry review: avg CP=535 afib. Will increase betablocker. Replace mag (1.4) with IV rider. Titrate cardizem gtt to keep HR less than 100. Continue Xarelto for AC, denies abnormal or unusual bleeding. (2) Elevated troponin Current Visit: No Status: Acute Troponin 0.08 in the setting of atrial fibrillation with RVR; this likely is secondary to demand ischemia. Patient denies chest pain or discomfort. TTE last week showed preserved LVEF 60%. Cardiac rehab not indicated, continue medical therapy including asa, statin, and betablocker. (3) CAD (coronary artery disease) Current Visit: Yes Status: Acute Hx of [place] in 2015 s/p PCI. EF recovered after revascularization/medical therapy to 60%. Continue asa, statin, nitrates, and betablocker. Qualifiers: Coronary Disease-Associated Artery/Lesion type: [place] artery [place] vs. transplanted heart: [place] heart Associated angina: without angina Qualified Code(s): I25.10 - Atherosclerotic heart disease of [place] coronary artery without angina pectoris Discussion w patient/family: The assessment and plan as outlined above was discussed with the patient and/or family members who expressed understanding and agreement. All questions were answered. Thank you for involving us in the care of your patient. Please call with any questions. The patient will be discussed and reviewed with Dr. Arreola; changes to be made accordingly. History of Present Illness Consult date: 07/14/16 Requesting physician: Crista Duffy Consult reason: Afib with RVR Chief complaint: Shortness of breath, fatigue History of present illness: Ms. Armas is a 65 year old female with CAD s/p PCI, ICMP with recovered EF, PAF (Xarelto), and DMII who presented to the ED with a 2-week history of fatigue , weakness, and shortness of breath. She states she was discharged last Tuesday from [facility] (dx Influenza A) but has yet to have any improvement in her symptoms. Upon arrival to the ED she was found to be in atrial fibrillation with RVR and was then started on a cardizem gtt. WBC 19 upon admission, also noted to have a low grade temp 99.4 degrees Fahrenheit. Prior CV testing includes: LHC 06/25/14: Left main normal. LAD mid 99% stenosis (3 Memo placed). Circumflex proximal 20% stenosis, mid 30% stenosis. OM1 30% stenosis. OM2 30% stenosis. RCA 100% proximal stenosis. Eluv-oz-wvmcl collaterals. TTE 10/09/14: EF 60%. Basal inferior hypokinesis. Mild concentric LVH. TTE 07/04/16: EF 60%, hypokinesis basal inferior wall, mild cLVH, moderate LVDD, moderately dilated left atrium, no significant valvular dysfunction. Past Med Surg Social Fam HX - Past Medical History Attestation: Yes The following information was validated with the patient. Source: patient, old records reviewed Medical history: asthma, atrial fibrillation, coronary artery disease, diabetes , myocardial infarction, other Psychiatric history: anxiety, depression - Past Surgical History Surgical History: angioplasty/stent, hysterectomy - Social History Smoking Status: Never smoker Smokeless Tobacco Status: No Alcohol use: none Drug use: none Medications and Allergies Atorvastatin Calcium [Lipitor] 80 mg PO DAILY 11/23/14 [History] Carvedilol 3.125 mg PO BID 11/23/14 [History] Tramadol HCl [Ultram] 50 - 100 mg PO QID 11/23/14 [History] Levothyroxine [Synthroid] 50 mcg PO DAILY 05/22/15 [History] Montelukast [Singulair] 10 mg PO DAILY 05/22/15 [History] Paroxetine HCl [Paxil] 20 mg PO DAILY 05/22/15 [History] Rivaroxaban [Xarelto] 20 mg PO DAILY 05/22/15 [History] Albuterol Sulfate [Ventolin Hfa] 1 puff IH Q6H PRN 07/04/16 [History] Aspirin [Lo-Dose Aspirin EC] 81 mg PO DAILY 07/04/16 [History] Cyclobenzaprine [Flexeril] 20 mg PO HS 07/04/16 [History] Insulin LISPRO [HumaLOG] 40 units SQ TIDWM 07/04/16 [History] Isosorbide MONOnitrate (24 HR) [Imdur] 60 mg PO DAILY 07/04/16 [History] Potassium Chloride [K-Tab ER] 40 meq PO DAILY 07/04/16 [History] Albuterol Neb [Proventil Neb] 2.5 mg IH Q4HR #60 inhsol 07/05/16 [Rx] Ciclopirox Olamine [Ciclopirox] 1 appl TP BID 07/13/16 [History] PredniSONE [Prednisone] 40 mg PO AD 07/13/16 [History] Allergies Amoxicillin [From Augmentin] Allergy (Verified 07/13/16 20:49) Hives Barbiturates Allergy (Verified 07/13/16 20:49) Anxiety clavulanic acid [From Augmentin] Allergy (Verified 07/13/16 20:49) Hives codeine Allergy (Verified 07/13/16 20:49) Anaphylaxis Tetracycline Allergy (Verified 07/13/16 20:49) Nausea All Systems Review: A 10-system review of systems was performed and is negative for pertinent findings except as documented above in the HPI. - Cardiovascular Cardiovascular: as per HPI Physical Examination Vital Signs, Last 4 Hours Temp Pulse Resp BP Pulse Ox 07/14/16 07:11 99.3 F 110 22 112/75 94 07/14/16 05:25 98.2 F 98 18 122/85 94 General: Conversant, Other (obese) HEENT: Atraumatic, Normocephaly Cardiac: Other (irregularly irregular) Lungs: Other (Few rales throughout) Neuro: Alert and responsive Abdomen: Soft Skin: No rashes noted on visualized skin Musculoskeletal: No Chest Wall Tenderness Extremities: Other (+2 BLE edema) Results 07/14/16 03:42 07/14/16 03:42 Lab Results 07/14/16 07/14/16 03:42 03:42 WBC 16.9 H Hgb 12.1 Hct 39.0 Plt Count 175 Sodium 131 L Potassium 3.8 Chloride 95 L Carbon Dioxide 22 BUN 10 Creatinine 0.85 Glucose 304 H Calcium 8.9 Total Bilirubin 1.8 H AST 15 ALT 17 Alkaline Phosphatase 101 Active Medications Albuterol Sulfate (Albuterol Inhaler) 1 puff IH [id number] [facility]ADYS Stop: 01/13/17 04:01 Last Admin: 07/14/16 04:21 Dose: 1 puff Aspirin (Aspirin Ec) 81 mg PO DAILY [facility] Stop: 01/13/17 09:01 Last Admin: 07/14/16 08:38 Dose: 81 mg Atorvastatin Calcium (Lipitor) 80 mg PO DAILY [facility] Stop: 01/13/17 09:01 Last Admin: 07/14/16 08:37 Dose: 80 mg Carvedilol (Coreg) 3.125 mg PO BID [facility] Stop: 01/13/17 09:01 Last Admin: 07/14/16 08:37 Dose: 3.125 mg Dextrose/Water (Dextrose 50% (Syg)) 25 ml IVP AD PRN PRN Reason: Hypoglycemia Stop: 01/13/17 06:07 Dextrose (Dextrose 5%) 1,000 mls @ 100 mls/hr IVC .Q10H PRN PRN Reason: HYPOGLYCEMIA Stop: 01/13/17 06:07 Diltiazem HCl 125 mg/ Dextrose 125 mls @ 5 mls/hr IVC .Q24H GLADYS; 5 MG/HR PRN Reason: Protocol Stop: 01/12/17 21:31 Magnesium Sulfate 2 gm/ (Dextrose) 104 mls @ 100 mls/hr IVPB ONCE ONE Stop: 07/14/16 10:41 Insulin Human Lispro (Humalog) 0 units SQ HS [facility] PRN Reason: Protocol Stop: 01/13/17 21:01 Insulin Human Lispro (Humalog) 0 units SQ TIDAC [facility] PRN Reason: Protocol Stop: 01/13/17 07:31 Last Admin: 07/14/16 08:37 Dose: 12 units Isosorbide Mononitrate (Imdur) 60 mg PO DAILY [facility] Stop: 01/13/17 09:01 Last Admin: 07/14/16 08:38 Dose: 60 mg Levothyroxine Sodium (Synthroid) 50 mcg PO DAILY [facility] Stop: 01/13/17 09:01 Last Admin: 07/14/16 08:38 Dose: 50 mcg Montelukast Sodium (Singulair) 10 mg PO DAILY [facility] Stop: 01/13/17 09:01 Last Admin: 07/14/16 08:38 Dose: 10 mg Naloxone HCl (Narcan) 0.4 mg IVP Q2MIN PRN PRN Reason: Opioid Reversal Stop: 01/13/17 02:50 Paroxetine HCl (Paxil) 20 mg PO DAILY [facility] PRN Reason: Protocol Stop: 01/13/17 09:01 Last Admin: 07/14/16 08:38 Dose: 20 mg Prednisone (Prednisone) 10 mg PO DAILY [facility] Stop: 01/13/17 09:01 Last Admin: 07/14/16 08:38 Dose: 10 mg Rivaroxaban (Xarelto) 20 mg PO DAILY [facility] Stop: 01/13/17 09:01 Last Admin: 07/14/16 08:38 Dose: 20 mg Tramadol HCl (Ultram) 50 mg PO QID [facility] Stop: 01/13/17 09:01 Last Admin: 07/14/16 08:38 Dose: 50 mg - Imaging and Cardiology Chest Xray: report reviewed Echo: report reviewed Cardiac cath: report reviewed Other Results: Telemetry: avg YC=[id number] Afib. - EKG Interpretation EKG results cardiology: personally reviewed Consult Discharge Plan - Plan Referrals: Arnulfo Arango Jr, MD [Primary Care Provider] -
[2016-07-14] MEDS ORDERED: Magnesium Sulfate 2 GM in D5% in Water 100 ML IVPB ONE (09:39)
[2016-07-14] MEDS ORDERED: Acetaminophen 325 MG TABLET PO PRN (11:13)
[2016-07-14] MEDS: Furosemide 20 MG/2 ML VIAL IVP SCH (12:48)
[2016-07-14] MEDS ORDERED: Albuterol 2.5 MG/3 ML NEBULIZER IH PRN (13:18)
[2016-07-14] MEDS: traMADol 50 MG TABLET PO PRN (20:04)
[2016-07-15] MEDS: traMADol 50 MG TABLET PO PRN ×4 (02:01→21:52)
--- NOTE | 2016-07-15 05:18 | Electrocardiograph Report ---
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
[2016-07-15 05:22] LABS: BUN/Creatinine Ratio 19 (6-26); Blood Urea Nitrogen 15 mg/dL (7-20); Calcium 8.9 mg/dL (8.6-10.8); Carbon Dioxide 20 mEq/L (19-29); Chloride 96 mEq/L (98-109); Glucose 304 mg/dL (70-99); Magnesium 1.8 mg/dL (1.6-2.6); Osmolality,Calculated 282 (280-300); Potassium 3.8 mEq/L (3.5-4.5); Sodium 130 mEq/L (136-145); eGFR For African Americans > 60 (> 60); eGFR For Non-African Americans > 60 (> 60)
[2016-07-15 06:05] LABS: Basophils # 0.1 K/mcL (0.0-0.2); Basophils % 0.3 %; Eosinophils # 0.1 K/mcL (0.0-0.6); Eosinophils % 0.3 %; Hematocrit 35.9 % (35.3-44.9); Hemoglobin 11.5 g/dL (11.5-15.4); Immature Granulocytes % 1.9 % (0-4); Immature Platelets 19.6 % (1.1-6.1); Lymphocytes # 1.5 K/mcL (0.6-4.6); Lymphocytes % 6.2 %; Mean Corpuscular Hemoglobin 26.3 pg (28.0-33.3); Mean Platelet Volume 10.2 fL (9.4-12.4); Monocytes # 1.6 K/mcL (0.0-1.3); Monocytes % 6.7 %; Neutrophils # 20.2 K/mcL (1.6-8.9); Nucleated Red Blood Cells 0.1 /100 WBC (0); Red Blood Count 4.38 M/mcL (3.82-4.97); Red Cell Distribution Width 16.9 % (11.5-14.5); Segmented Neutrophils % 84.6 %
[2016-07-15 06:08] LABS: Platelet Count 271 K/mcL (140-400)
[2016-07-15] MEDS: *HR* Rivaroxaban 10 MG TABLET PO SCH (08:09)
[2016-07-15] MEDS: Furosemide 20 MG/2 ML VIAL IVP SCH (08:09)
[2016-07-15] MEDS: Isosorbide MONOnitrate (24 HR) 60 MG TAB.ER.24H PO SCH (08:10)
[2016-07-15] MEDS: Insulin LISPRO 300 UNITS/3 ML VIAL SQ SCH ×4 (08:10→20:37)
[2016-07-15] MEDS: Aspirin Enteric Coated 81 MG Tablet PO SCH (08:10)
[2016-07-15] MEDS: predniSONE 5 MG TABLET PO SCH (08:10)
[2016-07-15] MEDS: Insulin DETEMIR 100 UNIT/ML X5UNITS SQ SCH ×2 (13:57→20:37)
--- NOTE | 2016-07-15 17:30 | Event Note ---
Date of Encounter: 07/14/16 Time of Encounter: 14:00 65 year old female with multiple medical problems, recently discharged from our hospital after treatment for Influenza, and never completely recovered, is readmitted with tray with RVR. Patient seen and examined; reports fatigue, generalized weakness, cough; HR noted to be better controlled now; on IV Cardizem drip; Labs reviewed- improving leukocytosis, mild troponin leak, serum magnesium 1.4. Patient has been started on IV Cardizem drip for heart rate control, received a dose of IV magnesium sulfate. Cardiology has been consulted, consult appreciated-recommend titrating up beta susie and gradually weaning off IV Cardizem drip. Patient is noted to have generalized weakness associated with multiple falls at home, will consult physical and occupational therapy.
--- NOTE | 2016-07-15 18:08 | Event Note ---
Date of Encounter: 07/15/16 Time of Encounter: 18:05 Called re: troponin elevation of 2.47. Odd trend in troponin, so lab asked to re-do sample with specimen in lab. Result actually 0.1, which is similar to other results. LVEF preserved. No chest pain. Do not suspect ACS. No further cardiac testing appears necessary. Discussed with IM and family. Thanks.
[2016-07-16 04:34] LABS: Basophils % 0.3 %; Mean Corpuscular Volume 82.5 fL (83.0-100.0); Nucleated Red Blood Cells 0.2 /100 WBC (0)
[2016-07-16 04:36] LABS: Basophils # 0.1 K/mcL (0.0-0.2); Eosinophils # 0.1 K/mcL (0.0-0.6); Eosinophils % 0.5 %; Hematocrit 35.8 % (35.3-44.9); Hemoglobin 11.3 g/dL (11.5-15.4); Immature Granulocytes % 2.3 % (0-4); Immature Platelets 16.1 % (1.1-6.1); Lymphocytes # 1.5 K/mcL (0.6-4.6); Lymphocytes % 7.3 %; Mean Corpuscular HGB Conc 31.6 g/dL (31.6-35.5); Mean Platelet Volume 10.3 fL (9.4-12.4); Neutrophils # 16.9 K/mcL (1.6-8.9); Red Blood Count 4.34 M/mcL (3.82-4.97); Red Cell Distribution Width 16.9 % (11.5-14.5); Segmented Neutrophils % 84.6 %
[2016-07-16 04:48] LABS: Platelet Count 246 K/mcL (140-400)
[2016-07-16 04:53] LABS: BUN/Creatinine Ratio 20 (6-26); Blood Urea Nitrogen 18 mg/dL (7-20); Calcium 9.1 mg/dL (8.6-10.8); Carbon Dioxide 22 mEq/L (19-29); Chloride 93 mEq/L (98-109); Glucose 241 mg/dL (70-99); Osmolality,Calculated 280 (280-300); Potassium 3.8 mEq/L (3.5-4.5); Sodium 130 mEq/L (136-145); eGFR For African Americans > 60 (> 60); eGFR For Non-African Americans > 60 (> 60)
[2016-07-16] MEDS: *HR* Rivaroxaban 10 MG TABLET PO SCH (08:30)
[2016-07-16] MEDS: Isosorbide MONOnitrate (24 HR) 60 MG TAB.ER.24H PO SCH (08:30)
[2016-07-16] MEDS: predniSONE 5 MG TABLET PO SCH (08:31)
[2016-07-16] MEDS: Furosemide 20 MG/2 ML VIAL IVP SCH (08:31)
[2016-07-16] MEDS: Aspirin Enteric Coated 81 MG Tablet PO SCH (08:31)
[2016-07-16] MEDS: Insulin LISPRO 300 UNITS/3 ML VIAL SQ SCH ×4 (08:31→21:05)
[2016-07-16] MEDS: Insulin DETEMIR 100 UNIT/ML X5UNITS SQ SCH ×2 (08:33→21:05)
[2016-07-16 22:06] LABS: Bilirubin,Urine Small (Negative); Blood,Urine Trace (Negative); Clarity,Urine Hazy (Clear); Color,Urine Dark Yellow (Yellow); Glucose,Urine (UA) 250 mg/dL (Normal); Ketones,Urine Negative (Negative); Leukocyte Esterase,Urine Trace (Negative); Nitrite,Urine Positive (Negative); Protein,Urine 100 mg/dL (Neg-Trace); Specific Gravity,Urine 1.029 (1.010-1.025); Urobilinogen,Urine Normal (Normal)
[2016-07-16 22:07] LABS: Bacteria,Urine Many per hpf (None-Few); RBC,Urine 15-30 per hpf (0-3); Squamous Epithelial Cell,Urine Many per lpf (None-Few)
[2016-07-17] MEDS ORDERED: *HR* Metoprolol 5 MG/5 ML VIAL IVP ONE ×3 (01:42→10:37)
[2016-07-17 07:36] LABS: Basophils # 0.1 K/mcL (0.0-0.2); Basophils % 0.3 %; Eosinophils % 0.2 %; Hematocrit 36.3 % (35.3-44.9); Hemoglobin 11.5 g/dL (11.5-15.4); Lymphocytes % 5.7 %; Mean Corpuscular HGB Conc 31.7 g/dL (31.6-35.5); Mean Corpuscular Hemoglobin 26.3 pg (28.0-33.3); Mean Corpuscular Volume 82.9 fL (83.0-100.0); Monocytes # 0.8 K/mcL (0.0-1.3); Monocytes % 4.3 %; Neutrophils # 15.9 K/mcL (1.6-8.9); Nucleated Red Blood Cells 0.1 /100 WBC (0); Red Blood Count 4.38 M/mcL (3.82-4.97); Red Cell Distribution Width 17.1 % (11.5-14.5); Segmented Neutrophils % 88.5 %
[2016-07-17] MEDS: Insulin DETEMIR 100 UNIT/ML X5UNITS SQ SCH (07:48)
[2016-07-17] MEDS: predniSONE 5 MG TABLET PO SCH (07:48)
[2016-07-17] MEDS: Insulin LISPRO 300 UNITS/3 ML VIAL SQ SCH ×2 (07:49→12:09)
[2016-07-17] MEDS: Isosorbide MONOnitrate (24 HR) 60 MG TAB.ER.24H PO SCH (07:49)
[2016-07-17] MEDS: Furosemide 20 MG/2 ML VIAL IVP SCH (07:49)
[2016-07-17] MEDS: Aspirin Enteric Coated 81 MG Tablet PO SCH (07:49)
[2016-07-17] MEDS: *HR* Rivaroxaban 10 MG TABLET PO SCH (07:49)
[2016-07-17 07:56] LABS: Mean Platelet Volume 10.4 fL (9.4-12.4)
[2016-07-17] MEDS ORDERED: 0.9 % Sodium Chloride 1,000 ML ONE (10:39)
[2016-07-17] MEDS ORDERED: 0.9 % Sodium Chloride 1,000 ML IVC SCH ×2 (10:45→14:59)
[2016-07-17] MEDS ORDERED: 0.9 % Sodium Chloride 1,000 ML IVC ONE (10:55)
--- NOTE | 2016-07-17 11:04 | Internal Med Progress Note ---
Date of Encounter: 07/17/16 Time of Encounter: 11:02 - Assessment and plan (1) Acute respiratory failure Current Visit: Yes Status: Acute (2) Diabetes mellitus type 2, insulin dependent Current Visit: Yes Status: Chronic (3) Atrial fibrillation with rapid ventricular response Current Visit: No Status: Acute (4) General weakness Current Visit: Yes Status: Acute (5) CAD (coronary artery disease) Current Visit: Yes Status: Chronic Qualifiers: Coronary Disease-Associated Artery/Lesion type: [place] artery [place] vs. transplanted heart: [place] heart Associated angina: without angina Qualified Code(s): I25.10 - Atherosclerotic heart disease of [place] coronary artery without angina pectoris (6) Diastolic CHF Current Visit: Yes Status: Chronic Qualifiers: Congestive heart failure chronicity: acute on chronic Qualified Code(s): I50.33 - Acute on chronic diastolic (congestive) heart failure - Subjective Interval history: Patient noted to be ill today. She is having shortness of breath along with anxiety, noted to be in respiratory distress with tachypnea. Telemetry also shows atrial fibrillation with rapid ventricular response with heart rate in 130s. She is very anxious, repeating that she does not know why she is so sick and that she would like to just get better and go home. - Constitutional Vitals: Temp Pulse Resp BP Pulse Ox 98.2 F 132 30 90/68 92 07/17/16 10:50 07/17/16 10:50 07/17/16 10:50 07/17/16 10:50 07/17/16 10:50 General appearance: Present: A&O X 3, morbidly obese, severe distress (Anxious and diaphoretic) - Head Head exam: Present: atraumatic, normocephalic - Neck Neck exam general surgery: Present: supple, trachea midline. Absent: lymphadenopathy - Respiratory Respiratory exam: Present: CTAB (Coarse breath sounds bilaterally,? Faint crackles). Absent: accessory muscle use, rales, rhonchi, wheezes - Cardiovascular Cardiovascular exam: Present: irregular rhythm, +S1, +S2, tachycardia. Absent: diastolic murmur, gallop, rubs, systolic murmur - GI/Abdominal GI/Abdominal exam: Present: normal bowel sounds, soft, no peritoneal signs. Absent: distended, tenderness - Extremities Exam Extremities exam: Present: full ROM, pedal edema, warm, radial pulses palpable and symetrical. Absent: calf tenderness, cyanotic - Neurological Exam Neurological exam: Present: CN II-XII intact, oriented X3, no focal deficits. Absent: pronater drift, facial droop, speech deficit - Skin Skin exam: Present: dry, intact Internal Medicine: Result - Labs CBC & Chem 7: 07/17/16 06:34 07/16/16 04:03 Labs: Short CBC 07/17/16 Range/Units 06:34 WBC 18.0 H (4.3-11.1) K/mcL Hgb 11.5 (11.5-15.4) g/dL Hct 36.3 (35.3-44.9) % Plt Count TNP Neutrophils # 15.9 H (1.6-8.9) K/mcL Urine 07/16/16 Range/Units 21:51 Urine Color Dark Yellow (Yellow) Urine Clarity Hazy A (Clear) Urine pH 6.0 (5.0-8.0) pH Units Ur Specific [place] 1.029 H (1.010-1.025) Urine Protein 100 H (Neg-Trace) mg/dL Urine Glucose (UA) 250 H (Normal) mg/dL - ABG Interpretation ABG results: PT/INR, D-dimer PT 15.8 Seconds (9.4-12.1) H 07/13/16 20:47 - VTE Reasons for not Prescribing Prophylaxis: Not indicated-Anticoagulated or INR therapeutic Consult Discharge Plan - Plan Referrals: Arnulfo Arango Jr, MD [Primary Care Provider] - (web request sent on 07/14/16)
[2016-07-17 11:21] LABS: ABG HCO3 22.4 mEQ/L (21-27); ABG Oxygen Saturation 97 % (95-98); ABG PCO2 25 mmHg (35-45); ABG PH 7.56 pH Units (7.32-7.45); ABG PO2 81 mmHg (85-104); ABG TCO2 23.2 mEq/L (20-26)
[2016-07-17] MEDS ORDERED: *HR* LORazepam 2 MG/ML VIAL IVP ONE (11:21)
[2016-07-17 11:22] LABS: Blood Gas FiO2 34 %
--- NOTE | 2016-07-17 11:50 | Pulmonology Consult Note ---
<Олег Mahan - Last Filed: 07/17/16 15:53> Date of Encounter: 07/17/16 Time of Encounter: 11:50 Assessment and Plan (1) Atrial fibrillation with rapid ventricular response Current Visit: No Status: Acute After IV fluid bolus patient's MAP improved to 70, heart rate is between 100 to 110, pulmonary physical therapist came to the ICU and evaluated the patient at the bedside, limited echo ordered by pulmonary physical therapist and it showed left ventricular ejection fraction 55% and mobile echodensity attached to the mitral valve leaflets, very suspicious for vegetation, with recent history of dental abscess treatment prior to this admission, infective endocarditis from dental origin is high on differential, blood culture 2 has been ordered, with decreased mentation, CT of the head was ordered to rule out cardioembolic event, patient will be transferred to tertiary [place] in [facility] for further cardiothoracic evaluation. (2) Vegetation of heart valve Current Visit: Yes Status: Acute Limited echo ordered by pulmonary physical therapist and it showed left ventricular ejection fraction 55% and mobile echodensity attached to the mitral valve leaflets, very suspicious for vegetation, with recent history of dental abscess treatment prior to this admission, infective endocarditis from dental origin is high on differential, blood culture 2 has been ordered, with decreased mentation, CT of the head was ordered to rule out cardioembolic event, patient will be transferred to tertiary [place] in [facility] for further cardiothoracic evaluation. Currently patient is on cefepime IV previously ordered by the hospitalist. (3) Leukocytosis Current Visit: Yes Status: Acute At baseline she does not have a leukocytosis, this is likely secondary to infectious from underlying infective endocarditis, blood cultures 2 are pending , currently patient is on cefepime IV, plan is to transfer patient to [facility]. Qualifiers: Qualified Code(s): D72.829 - Elevated white blood cell count, unspecified (4) Hypotension Current Visit: Yes Status: Acute Hypotension improved after IV fluid bolus, this could be related to atrial fibrillation with rapid ventricular response and/or underlying infective endocarditis, we will continue to closely monitor her vital signs and clinical status in the ICU before the transfer. Qualifiers: Qualified Code(s): I95.9 - Hypotension, unspecified (5) Elevated troponin Current Visit: Yes Status: Acute Adynamic troponin elevation, no chest pain now, this is likely secondary to demand ischemia from atrial fibrillation with RVR and/or infective endocarditis. (6) Asthma Current Visit: Yes Status: Acute Not in exacerbation, will continue oxygen support via nasal cannula, and bronchodilator treatment as needed. Qualifiers: Qualified Code(s): J45.909 - Unspecified asthma, uncomplicated (7) DVT prophylaxis Current Visit: Yes Status: Acute Xarelto. History of Present Illness Consult date: 07/17/16 Requesting physician: Natalia Page Reason for consult: other (a-fib rvr with hypotension) Chief complaint: a-fib rvr with hypotension History of present illness: This is a 65-year-old female with past medical history of asthma, coronary artery disease, diabetes type 2, and atrial fibrillation on anticoagulation with xarelto, she presented to the ER with chief complaint of weakness, multiple falls without loss of consciousness, lightheadedness and exertional dyspnea that is worse than her baseline, in the ER she was found to have atrial fibrillation with rapid ventricular response, she received IV fluid bolus and started on Cardizem IV infusion and she was admitted to the hospital for further management. This morning critical care/pulmonology was consulted for atrial fibrillation with rapid ventricular response with hypotension and patient was having respiratory distress with tachypnea, she looked very anxious , pale, decreased mentation, and she said that she felt uncomfortable, therefore patient was transferred to ICU for close monitoring and further management. Past Med Surg Social Fam HX - Past Medical History Medical history: asthma, atrial fibrillation, coronary artery disease, diabetes , myocardial infarction, other Psychiatric history: anxiety, depression - Past Surgical History Surgical History: hysterectomy - Social History Smoking Status: Never smoker Smokeless Tobacco Status: No Alcohol use: none Drug use: none - Family History Mother History Unknown: Yes Father History Unknown: Yes Medications and Allergies Atorvastatin Calcium [Lipitor] 80 mg PO DAILY 11/23/14 [History] Carvedilol 3.125 mg PO BID 11/23/14 [History] Tramadol HCl [Ultram] 50 - 100 mg PO QID 11/23/14 [History] Levothyroxine [Synthroid] 50 mcg PO DAILY 05/22/15 [History] Montelukast [Singulair] 10 mg PO DAILY 05/22/15 [History] Paroxetine HCl [Paxil] 20 mg PO DAILY 05/22/15 [History] Rivaroxaban [Xarelto] 20 mg PO DAILY 05/22/15 [History] Albuterol Sulfate [Ventolin Hfa] 1 puff IH Q6H PRN 07/04/16 [History] Aspirin [Lo-Dose Aspirin EC] 81 mg PO DAILY 07/04/16 [History] Cyclobenzaprine [Flexeril] 20 mg PO HS 07/04/16 [History] Insulin LISPRO [HumaLOG] 40 units SQ TIDWM 07/04/16 [History] Isosorbide MONOnitrate (24 HR) [Imdur] 60 mg PO DAILY 07/04/16 [History] Potassium Chloride [K-Tab ER] 40 meq PO DAILY 07/04/16 [History] Albuterol Neb [Proventil Neb] 2.5 mg IH Q4HR #60 inhsol 07/05/16 [Rx] Ciclopirox Olamine [Ciclopirox] 1 appl TP BID 07/13/16 [History] PredniSONE [Prednisone] 40 mg PO AD 07/13/16 [History] Allergies Amoxicillin [From Augmentin] Allergy (Verified 07/13/16 20:49) Hives Barbiturates Allergy (Verified 07/13/16 20:49) Anxiety clavulanic acid [From Augmentin] Allergy (Verified 07/13/16 20:49) Hives codeine Allergy (Verified 07/13/16 20:49) Anaphylaxis Tetracycline Allergy (Verified 07/13/16 20:49) Nausea All Systems: A 10-system review of systems was performed and is negative for pertinent findings except as documented above in the HPI. Review of Systems: Patient admits exertional dyspnea, fatigue, lightheadedness, denies nausea, vomiting, headache, chills, chest pain, palpitation, productive cough, abdominal pain, diarrhea, or dysuria. Physical Examination Vital Signs: Vital Signs, Last 4 Hours Temp Pulse Resp BP Pulse Ox 07/17/16 11:06 98.3 F 97 28 73/51 94 07/17/16 10:50 98.2 F 132 30 90/68 92 07/17/16 10:42 90/68 07/17/16 08:55 97.9 F 147 32 131/75 91 General appearance: alert, appears uncomfortable Eyes: nonicteric ENT: oropharynx moist Neck: supple Effort: normal Inspection: normal Auscultation: bilateral: clear Cardiovascular: irregular rhythm (Tachycardic) Gastrointestinal: normoactive bowel sounds, soft, non-tender, non-distended, other (Morbidity obese) Integumentary: normal Extremities: no cyanosis, no clubbing, pink and warm, pulses normal, edema ( Mild nonpitting pedal bilateral) Musculoskeletal: no deformities normal mental status, non-focal exam, pupils equal and round, CN II-XII normal anxious Results - Laboratory Findings CBC and BMP: 07/17/16 13:42 07/16/16 04:03 ABG ABG pH 7.56 pH Units (7.32-7.45) H 07/17/16 11:10 ABG pCO2 25 mmHg (35-45) L 07/17/16 11:10 ABG pO2 81 mmHg (85-104) L 07/17/16 11:10 ABG O2 Saturation 97 % (95-98) 07/17/16 11:10 PT/INR, D-dimer PT 15.8 Seconds (9.4-12.1) H 07/13/16 20:47 Abnormal lab findings: Abnormal lab results WBC 18.0 K/mcL (4.3-11.1) H 07/17/16 06:34 MCV 82.9 fL (83.0-100.0) L 07/17/16 06:34 MCH 26.3 pg (28.0-33.3) L 07/17/16 06:34 RDW 17.1 % (11.5-14.5) H 07/17/16 06:34 Neutrophils # 15.9 K/mcL (1.6-8.9) H 07/17/16 06:34 Nucleated RBCs/100 WBC 0.1 /100 WBC (0) H 07/17/16 06:34 Immature Plt Fraction 16.1 % (1.1-6.1) H 07/16/16 04:03 PT 15.8 Seconds (9.4-12.1) H 07/13/16 20:47 ABG pH 7.56 pH Units (7.32-7.45) H 07/17/16 11:10 ABG pCO2 25 mmHg (35-45) L 07/17/16 11:10 ABG pO2 81 mmHg (85-104) L 07/17/16 11:10 Sodium 130 mEq/L (136-145) L 07/16/16 04:03 Chloride 93 mEq/L (98-109) L 07/16/16 04:03 Glucose 241 mg/dL (70-99) H 07/16/16 04:03 POC Glucose 204 (58-89) H 07/17/16 11:04 Total Bilirubin 1.8 mg/dL (0.2-1.2) H 07/14/16 03:42 Troponin I 0.12 ng/mL (0-0.03) H* 07/15/16 09:01 B-Natriuretic Peptide 119 pg/mL (0-100) H 07/15/16 04:34 Albumin 2.5 g/dL (3.5-5.0) L 07/14/16 03:42 Globulin 4.5 g/dL (2.4-3.5) H 07/14/16 03:42 Albumin/Globulin Ratio 0.6 (1.1-2.2) L 07/14/16 03:42 Urine Clarity Hazy (Clear) A 07/16/16 21:51 Ur Specific [place] 1.029 (1.010-1.025) H 07/16/16 21:51 Urine Protein 100 mg/dL (Neg-Trace) H 07/16/16 21:51 Urine Glucose (UA) 250 mg/dL (Normal) H 07/16/16 21:51 Urine Blood Trace (Negative) H 07/16/16 21:51 Urine Nitrite Positive (Negative) A 07/16/16 21:51 Urine Bilirubin Small (Negative) H 07/16/16 21:51 Ur Leukocyte Esterase Trace (Negative) H 07/16/16 21:51 Urine Microscopic RBC 15-30 per hpf (0-3) H 07/16/16 21:51 Urine Microscopic WBC 5-15 per hpf (0-3) H 07/16/16 21:51 Ur Squamous Epith Cells Many per lpf (None-Few) H 07/16/16 21:51 Urine Bacteria Many per hpf (None-Few) H 07/16/16 21:51 Ur Culture Indicated? YES (NO) A 07/16/16 21:51 - Clinical Findings Intake & Output: Intake & Output 07/16/16 07/17/16 07/17/16 23:59 07:59 15:59 Intake Total 0 / 0 Output Total 200 / 200 Balance -200 / -200 Weight 128 kg Consult Discharge Plan - Plan Referrals: Arnulfo Arango Jr, MD [Primary Care Provider] - (web request sent on 07/14/16) <Ramon Morgan - Last Filed: 07/17/16 18:45> Date of Encounter: 07/17/16 All Systems: A 10-system review of systems was performed and is negative for pertinent findings except as documented above in the HPI. Physical Examination Vital Signs: Vital Signs, Last 4 Hours Temp Pulse Resp BP Pulse Ox 07/17/16 11:06 98.3 F 97 28 73/51 94 07/17/16 10:50 98.2 F 132 30 90/68 92 07/17/16 10:42 90/68 07/17/16 08:55 97.9 F 147 32 131/75 91 Results - Laboratory Findings CBC and BMP: 07/17/16 13:42 07/16/16 04:03 ABG ABG pH 7.56 pH Units (7.32-7.45) H 07/17/16 11:10 ABG pCO2 25 mmHg (35-45) L 07/17/16 11:10 ABG pO2 81 mmHg (85-104) L 07/17/16 11:10 ABG O2 Saturation 97 % (95-98) 07/17/16 11:10 PT/INR, D-dimer PT 15.8 Seconds (9.4-12.1) H 07/13/16 20:47 Abnormal lab findings: Abnormal lab results WBC 18.0 K/mcL (4.3-11.1) H 07/17/16 06:34 MCV 82.9 fL (83.0-100.0) L 07/17/16 06:34 MCH 26.3 pg (28.0-33.3) L 07/17/16 06:34 RDW 17.1 % (11.5-14.5) H 07/17/16 06:34 Neutrophils # 15.9 K/mcL (1.6-8.9) H 07/17/16 06:34 Nucleated RBCs/100 WBC 0.1 /100 WBC (0) H 07/17/16 06:34 Immature Plt Fraction 16.1 % (1.1-6.1) H 07/16/16 04:03 PT 15.8 Seconds (9.4-12.1) H 07/13/16 20:47 ABG pH 7.56 pH Units (7.32-7.45) H 07/17/16 11:10 ABG pCO2 25 mmHg (35-45) L 07/17/16 11:10 ABG pO2 81 mmHg (85-104) L 07/17/16 11:10 Sodium 130 mEq/L (136-145) L 07/16/16 04:03 Chloride 93 mEq/L (98-109) L 07/16/16 04:03 Glucose 241 mg/dL (70-99) H 07/16/16 04:03 POC Glucose 203 (58-89) H 07/17/16 12:34 Total Bilirubin 1.8 mg/dL (0.2-1.2) H 07/14/16 03:42 Troponin I 0.13 ng/mL (0-0.03) H* 07/17/16 12:06 B-Natriuretic Peptide 119 pg/mL (0-100) H 07/15/16 04:34 Albumin 2.5 g/dL (3.5-5.0) L 07/14/16 03:42 Globulin 4.5 g/dL (2.4-3.5) H 07/14/16 03:42 Albumin/Globulin Ratio 0.6 (1.1-2.2) L 07/14/16 03:42 Urine Clarity Hazy (Clear) A 07/16/16 21:51 Ur Specific [place] 1.029 (1.010-1.025) H 07/16/16 21:51 Urine Protein 100 mg/dL (Neg-Trace) H 07/16/16 21:51 Urine Glucose (UA) 250 mg/dL (Normal) H 07/16/16 21:51 Urine Blood Trace (Negative) H 07/16/16 21:51 Urine Nitrite Positive (Negative) A 07/16/16 21:51 Urine Bilirubin Small (Negative) H 07/16/16 21:51 Ur Leukocyte Esterase Trace (Negative) H 07/16/16 21:51 Urine Microscopic RBC 15-30 per hpf (0-3) H 07/16/16 21:51 Urine Microscopic WBC 5-15 per hpf (0-3) H 07/16/16 21:51 Ur Squamous Epith Cells Many per lpf (None-Few) H 07/16/16 21:51 Urine Bacteria Many per hpf (None-Few) H 07/16/16 21:51 Ur Culture Indicated? YES (NO) A 07/16/16 21:51 - Clinical Findings Intake & Output: Intake & Output 07/16/16 07/17/16 07/17/16 23:59 07:59 15:59 Intake Total 0 / 0 Output Total 200 / 200 Balance -200 / -200 Weight 128 kg - Attending Attestation I examined this patient and my medical decision-making was reviewed with the KAIAKO KOHANGA REO/PA/Advanced Practice Nurse/Resident Physician. I agree with the documented findings, disposition and treatment plan as described except to the extent set forth below. I was called by Dr. Page that this patient is clinically deteriorating and she has been hypotensive and A. fib with RVR. I went to with ICU oil refinery process technician and resident and found patient is pale, lethargic and uncomfortable. SBP manually remain around 80 mmHg and patient doesn't feel good. chest bilateral crackles to auscultation and still AOX3, however her heart rate is tachycardic and distant heart sounds, due to the rate, can't appreciate any murmurs, but it is irregular. She was given antibiotics and she has history of sleep apnea as well. I talked to primary team to transfer patient to ICU for close monitoring until cardiology see patient, which was done in ICU and her BP at that time was normalizing after fluid bolus. Patient is on anticoagulation and bleeding in the differential diagnosis. Dr. Arreola is managing her A.fib RVR and will check H&H, if drops, will plan for CT chest, abdomen and plevis to search for any bleeding source. Empiric antibiotic and culture. She will get limited echocardiogram and 12 leads ECG. I feel the source of her problems is cardiac and appreciate Dr. Arreola's help. Subsequently it was found there is a vegetation on the mitral valve on the echocardiogram. Patient will be transferred to [place]. Patient will be placed on BiPAP at night for JOAO. Thanks for the consult.
[2016-07-17] MEDS ORDERED: Cefepime HCl 1,000 MG in D5% in Water (Mini-Bag+) 100 ML IVPB SCH ×2 (12:00→20:00)
[2016-07-17 12:28] LABS: Magnesium 1.6 mg/dL (1.6-2.6); Phosphorous 3.5 mg/dL (2.3-4.7)
[2016-07-17] MEDS ORDERED: Perflutren Lipid Microsphere 1.3 ML in 0.9 % Sodium Chloride 8.7 ML IVP ONE (13:42)
[2016-07-17 14:11] LABS: Hematocrit 31.4 % (35.3-44.9); Hemoglobin 10.2 g/dL (11.5-15.4)
[2016-07-17] MEDS ORDERED: *HR* Dextrose 50 % in Water (Syg) 50 ML SYRINGE IVP PRN (14:59)
[2016-07-17] MEDS ORDERED: Acetaminophen 325 MG TABLET PO PRN (14:59)
[2016-07-17] MEDS ORDERED: traMADol 50 MG TABLET PO PRN (14:59)
[2016-07-17] MEDS ORDERED: D5% in Water 1,000 ML IVC PRN (14:59)
[2016-07-17] MEDS ORDERED: Naloxone 0.4 MG/ML INJ IVP PRN (14:59)
[2016-07-17] MEDS ORDERED: Albuterol 2.5 MG/3 ML NEBULIZER IH PRN (14:59)
[2016-07-17] MEDS ORDERED: Dextrose Gel 15 GM PO PRN ×2 (14:59)
--- NOTE | 2016-07-17 15:07 | Cardiology Progress Note ---
Date of Encounter: 07/17/16 Time of Encounter: 15:07 Assessment and Plan (1) Endocarditis Current Visit: Yes Status: Acute Mitral valve findings on echocardiogram very concerning for endocarditis. Patient's family now tells us she had dental abscess treated prior to admission. Given confusion and mild visual changes, consideration should be given to cardioemobolic events. Recommend CT head to evaluate. Discussed with IM/ICU. Currently on antibiotics - I will defer to IM. Blood cultures were not obtained. Given these findings and deterioration, I would consider transfer for to tertiary center. She may require surgical evaluation. Family requests [place]. Qualifiers: Endocarditis type: unspecified Chronicity: acute Qualified Code(s): I33.9 - Acute and subacute endocarditis, unspecified (2) Atrial fibrillation with RVR Current Visit: Yes Status: Acute PAF, Xarelto therapy. Currently worsened by clinical status. Continue observation. Hold BB for now given recent hypotensive event. (3) Elevated troponin Current Visit: Yes Status: Acute Adynamic, flat troponin elevation. Likely related to AF with RVR, periods of hypotension, etc. EF remains normal. No significant ST-T changes on ECG. No chest pain per patient. Presentaion not consistent with ACS. (4) CAD (coronary artery disease) Current Visit: Yes Status: Chronic [place] CAD, prior ICMP, which resolved after revascularization. Qualifiers: Coronary Disease-Associated Artery/Lesion type: [place] artery [place] vs. transplanted heart: [place] heart Associated angina: without angina Qualified Code(s): I25.10 - Atherosclerotic heart disease of [place] coronary artery without angina pectoris Discussion w patient/family: The assessment and plan as outlined above was discussed with the patient and/or family members who expressed understanding and agreement. All questions were answered. Thank you for involving us in the care of your patient. Please call with any questions. Subjective Principal diagnosis: Weakness Interval history: Patient re-evaluated today. Per previous, patient recently positive for flu. Never completely recovered. General weakness since admission. AF with RVR, episode of RVR earlier. Associated with significant hypotension. Patient given IVFs and transferred to ICU. BP responded well to IVFs. General confusion continues and states vision not ideal. TTE obtained, which demonstrates grossly normal LV function. More concerning - there appears to be a vegetation on the mitral valve. Family now states she had an abscessed tooth that was treated prior to admission. Objective Vital Signs, Last 4 Hours Temp Pulse Resp BP Pulse Ox 07/17/16 14:00 104 18 78/53 93 07/17/16 13:15 97.4 F L 120 18 104/73 93 General: Other (Answers most questions coherently, but seems confused overall. ) HEENT: Atraumatic, Normocephaly, Mucus Membranes Moist Neck: No JVD, Normal carotid pulses Cardiac: Other (Irregular rate and rhythm. ) Lungs: Other (Shallow. ) Neuro: Other (Mild confusion remains. ) Abdomen: Soft, Non-Tender, Other (obese) Skin: No rashes noted on visualized skin Musculoskeletal: No Chest Wall Tenderness Extremities: No Clubbing, No Cyanosis, Other (Mild edema bilaterally) Results 07/17/16 13:42 07/16/16 04:03 Lab Results 07/17/16 07/17/16 07/17/16 06:34 12:06 12:06 WBC 18.0 H Hgb 11.5 Hct 36.3 Plt Count TNP Magnesium 1.6 Troponin I 0.13 H* 07/17/16 13:42 WBC Hgb 10.2 L Hct 31.4 L Plt Count Magnesium Troponin I - Imaging and Cardiology Echo: report reviewed - EKG Interpretation EKG results cardiology: personally reviewed - VTE Reasons for not Prescribing Prophylaxis: Not indicated-Anticoagulated or INR therapeutic Consult Discharge Plan - Plan Referrals: Arnulfo Arango Jr, MD [Primary Care Provider] - (web request sent on 07/14/16)
--- NOTE | 2016-07-17 15:11 | ECHO - Doppler Report ---
Limited Echo with Imaging Enhancement Agent Name: Cecilia Armas Date of Study: 07/17/2016 Date: 1950 Ht: 66.0 in Medical Record#: [id number] Age: 65 Wt: 282.0 lb Gender: Female BSA: 2.31 Order #: [id number] Location: [facility] Room #: [facility] Reading Physician: Cam Arreola DO, FACC, FASE [place]: Barbie Zhang RDCS Ordering Physician: Cam Arreola DO, FACC, FASE Primary Physician: Arnulfo Arango MD Indications: Hypotension Impressions: LVEF 55%. EF varies by cycle length of atrial fibrillation, but appears grossly normal. There is a mobile echodensity attached to the mitral valve leaflets. Correlate clinically, but appears very suspicious for vegetation. This was a limited study for LV function. Consider complete TTE or RUDY to further evaluate mitral valve. Left Ventricular Wall Motion: Rest Echo Findings All wall segments showed normal motion. Findings: Study Quality * Technically sub-optimal due to body habitus and clinical status. ECG Findings * Atrial fibrillation. Left Ventricle * LVEF 55%. * EF varies by cycle length of atrial fibrillation, but appears grossly normal. Right Ventricle * Right ventricle was not well visualized. Mitral Valve * Mild mitral annular calcification. * There is a mobile echodensity attached to the mitral valve leaflets. Correlate clinically, but appears very suspicious for vegetation. History Hypertension Diabetes Hypercholesteremia Family History of CAD History of CAD/PTCA Myocardial Infarction 07/04/2016 a Previous Echo was performed. Contrast: Definity 1.3 ml in 8.7 ml of saline 4 ml. Measurements: BP: 104/ 73 2D Normal Values RVIDd: 2.75 cm <2.7 cm IVSd: 1.80 cm 0.6 - 1.0 cm LVIDd: 3.34 cm 3.7 - 5.6 cm LVPWd: 1.52 cm 0.6 - 1.1 cm LVIDs: 2.95 cm 1.5 - 3.6 cm %FS: 11.70 cm >25 % LA volume: Mitral Valve Peak E:1.51 m/sec Updated by Cam Arreola DO, FACC, FASE, FASNC on 07/17/2016 3:04:44 PM electronically signed on 07/17/2016 3:06:20 PM with status of Final Wall Motion [place]: 1=Normal, 2=Hypokinesis, 3=Akinesis, 4=Dyskinesis, 5=Aneurysmal, 6=Hyperkinetic, X=Not Visualized (Blank)=Missing
[2016-07-17] MEDS ORDERED: Piperacillin/Tazobactam 3.375 GM in D5% in Water (Mini-Bag+) 100 ML IVPB SCH (16:00)
[2016-07-17] MEDS ORDERED: Insulin LISPRO 300 UNITS/3 ML VIAL SQ SCH ×2 (16:30→21:00)
[2016-07-17] MEDS ORDERED: Vancomycin (wt based) 1,000 MG VIAL IVPB SCH (17:00)
[2016-07-17] MEDS ORDERED: Vancomycin 2,000 MG in D5% in Water 500 ML IVPB ONE (17:11)
--- NOTE | 2016-07-17 17:59 | Discharge Summary ---
Date of Encounter: 07/17/16 Time of Encounter: 17:49 - Discharge Diagnosis (1) Severe sepsis Priority: Primary Status: Acute (2) Endocarditis Priority: Primary Status: Acute Qualifiers: Endocarditis type: infective Infective endocarditis organism: bacterial Chronicity: acute Qualified Code(s): I33.0 - Acute and subacute infective endocarditis (3) Acute respiratory failure Priority: Primary Status: Acute Qualifiers: Respiratory failure complication: hypoxia Qualified Code(s): J96.01 - Acute respiratory failure with hypoxia (4) Diabetes mellitus type 2, insulin dependent Priority: Secondary Status: Chronic (5) Atrial fibrillation with rapid ventricular response Priority: Primary Status: Acute (6) General weakness Priority: Primary Status: Chronic (7) CAD (coronary artery disease) Priority: Secondary Status: Chronic Qualifiers: Coronary Disease-Associated Artery/Lesion type: [place] artery [place] vs. transplanted heart: [place] heart Associated angina: without angina Qualified Code(s): I25.10 - Atherosclerotic heart disease of [place] coronary artery without angina pectoris (8) Diastolic CHF Priority: Secondary Status: Chronic Qualifiers: Congestive heart failure chronicity: acute on chronic Qualified Code(s): I50.33 - Acute on chronic diastolic (congestive) heart failure - Discharge Medications Home Medications: Atorvastatin Calcium [Lipitor] 80 mg PO DAILY 11/23/14 [History] Carvedilol 3.125 mg PO BID 11/23/14 [History] Tramadol HCl [Ultram] 50 - 100 mg PO QID 11/23/14 [History] Levothyroxine [Synthroid] 50 mcg PO DAILY 05/22/15 [History] Montelukast [Singulair] 10 mg PO DAILY 05/22/15 [History] Paroxetine HCl [Paxil] 20 mg PO DAILY 05/22/15 [History] Rivaroxaban [Xarelto] 20 mg PO DAILY 05/22/15 [History] Albuterol Sulfate [Ventolin Hfa] 1 puff IH Q6H PRN 07/04/16 [History] Aspirin [Lo-Dose Aspirin EC] 81 mg PO DAILY 07/04/16 [History] Cyclobenzaprine [Flexeril] 20 mg PO HS 07/04/16 [History] Insulin LISPRO [HumaLOG] 40 units SQ TIDWM 07/04/16 [History] Isosorbide MONOnitrate (24 HR) [Imdur] 60 mg PO DAILY 07/04/16 [History] Potassium Chloride [K-Tab ER] 40 meq PO DAILY 07/04/16 [History] Albuterol Neb [Proventil Neb] 2.5 mg IH Q4HR #60 inhsol 07/05/16 [Rx] Ciclopirox Olamine [Ciclopirox] 1 appl TP BID 07/13/16 [History] PredniSONE [Prednisone] 40 mg PO AD 07/13/16 [History] Allergies/Adverse Reactions: Allergies Amoxicillin [From Augmentin] Allergy (Verified 07/13/16 20:49) Hives Barbiturates Allergy (Verified 07/13/16 20:49) Anxiety clavulanic acid [From Augmentin] Allergy (Verified 07/13/16 20:49) Hives codeine Allergy (Verified 07/13/16 20:49) Anaphylaxis Tetracycline Allergy (Verified 07/13/16 20:49) Nausea Procedures/tests Complete & Pending: Procedures Performed prior 72 hours Category Date Time Status CT head/brain wo con [CT] Stat Cat Scan 07/17/16 15:58 Ordered EV limited echo w enhance Routine Y 07/17/16 13:38 Completed Date of admission: 07/14/16 02:49 Primary care physician: Arnulfo Arango Jr, MD Consults: 07/14/16 02:56 Consult to Cardiology [CONS] Routine Comment: Consulting Provider: [facility] Reason for Consult: A fib with RVR Call Completed: No Consult to Physical Therapy [CONS] Routine Comment: Evaluate, develop and implement POC 07/15/16 08:29 Consult to Occupational Therapy [CONS] Routine Comment: Evaluate, develop and implement POC 07/15/16 15:28 Consult to Gas Tender [CONS] Routine Reason for SW Consult: needs ecf per therapy, son has questions about father also. 07/17/16 11:49 Consult to Pulmonology [CONS] Routine Consulting Provider: [facility] Reason for Consult: Acute respiratory failure, tachycardia, shock Call Completed: Yes Discharging clinician: Natalia Page Anticipated date of discharge: 07/17/16 - Patient Status Disposition: Transfer Critical Access Hosp Condition: Serious Functional capacity at discharge: bed bound Overall status at discharge: patient is not back to baseline - Discharge Instructions Follow Up With: Arnulfo Arango Jr, MD [Primary Care Provider] - (web request sent on 07/14/16) - Diet and Activity Diet: diabetic diet, low fat, low cholesterol, low salt diet Hospital course: Ms. Armas is a 65 year old female with the above medical problems who was admitted with worsening fatigue and generalized weakness. She was recently discharged from our hospital after treatment for influenza A. She was noted to have atrial fibrillation with rapid ventricular response at the time of admission along with mild volume overload secondary to this and has been briefly started on IV Cardizem drip along with IV Lasix, to which she initially responded well. Her heart rate was well controlled by the next morning and she was able to be tapered off the Cardizem drip and her home dose of oral carvedilol has been increased with appropriate response, while continuing on Lasix. Cardiology evaluation has been done and agree with the above management. Blood sugars were noted to be elevated initially during this hospitalization but have been better controlled after the addition of basal insulin and titrating the dose. On day 2, patient was noted to have low-grade fever with a maximum temperature of 100.2 but continued to feel generally well and was able to participate with physical therapy evaluation, who recommended inpatient rehabilitation placement. Arrangements were being made for possible discharge today to inpatient rehabilitation. Patient was noted to have worsening leukocytosis up to 20 and her urine dipstick was sent which was suggestive of UTI this morning. Patient had an acute change in clinical condition this morning, with worsening deterioration. She was noted to be mildly confused, tachypneic, tachycardic and hypoxic and diaphoretic. Blood cultures were sent and patient received IV cefepime for possible UTI. Patient also gradually became hypotensive along with rapid ventricular response. She was started on IV hydration with normal saline and given 1 dose of IV metoprolol 5 mg, to which she responded and her vital signs somewhat stabilized. She continues to require at least 4 L/m supplemental oxygen via nasal cannula. It was unclear if patient had septic shock or unstable atrial arrhythmia and critical care and cardiology were consulted and patient was transferred to ICU for further management. She underwent limited echocardiogram while in ICU, that was concerning for possible mitral valve vegetation, and bacterial endocarditis can certainly explain her present clinical condition, family also informed us that patient recently underwent treatment for dental abscess, which could have been the source of her endocarditis. Patient also reports intermittent neurological complaints like brief loss of vision in right eye, intermittent numbness and tingling in right hand and fingers and possible septic embolization is suspected. CT head is done with report pending. At this time, patient is deemed to require higher level of care for possible surgical intervention for her endocarditis. She received a dose of IV vancomycin and cefepime at this time, blood cultures have been sent. Patient is accepted to [facility] in [place] and is stable for discharge at this time. Patient's family is in agreement with this plan. - Time Spent with Patient Total time spent providing and/or coordinating discharge services: - Constitutional Vitals: Temp Pulse Resp BP Pulse Ox 97.4 F L 111 20 85/67 98 07/17/16 16:00 07/17/16 17:00 07/17/16 17:00 07/17/16 17:00 07/17/16 17:00 General appearance: Present: A&O X 2 (Mildly confused, very anxious), severe distress - Respiratory Respiratory exam: Present: CTAB. Absent: accessory muscle use, rales, rhonchi, wheezes - Cardiovascular Cardiovascular exam: Present: irregular rhythm, +S1, +S2, tachycardia. Absent: diastolic murmur, gallop, rubs, systolic murmur - VTE Reasons for not Prescribing Prophylaxis: Not indicated-Anticoagulated or INR therapeutic
--- NOTE | 2016-07-17 18:32 | Event Note ---
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 See previous note regarding vegetation(s) on MV. Patient and family updated. She has a bed at [facility], but awaiting transfer.
[2016-07-17 19:12] LABS: Hematocrit 30.7 % (35.3-44.9)
[2016-07-17] MEDS ORDERED: Aminoglycoside Consult 1 EACH MC ONE (19:24)
[2016-07-17] MEDS ORDERED: Insulin DETEMIR 100 UNIT/ML X5UNITS SQ SCH (21:00)
[2016-07-18] MEDS ORDERED: Vancomycin 1,750 MG in D5% in Water 500 ML IVPB SCH (06:00)
[2016-07-18] MEDS ORDERED: Isosorbide MONOnitrate (24 HR) 60 MG TAB.ER.24H PO SCH (09:00)
[2016-07-18] MEDS ORDERED: Furosemide 20 MG/2 ML VIAL IVP SCH (09:00)
[2016-07-18] MEDS ORDERED: Aspirin Enteric Coated 81 MG Tablet PO SCH (09:00)
[2016-07-18] MEDS ORDERED: predniSONE 5 MG TABLET PO SCH (09:00)
[2016-07-18] MEDS ORDERED: *HR* Rivaroxaban 10 MG TABLET PO SCH (09:00)
--- NOTE | 2016-07-18 16:55 | Internal Med Progress Note ---
Date of Encounter: 07/15/16 Time of Encounter: 12:00 - Assessment and plan (1) Acute respiratory failure Status: Acute Assessment and plan: Likely related to atrial fibrillation with rapid ventricular response. Chest x- ray showed no evidence of pneumonia. Continue supplemental oxygen and wean down FiO2 as tolerated. Patient is noted to have worsening leukocytosis, could be related to stress response from atrial arrhythmia/steroid use/respiratory failure. Continue to monitor. Qualifiers: Respiratory failure complication: hypoxia Qualified Code(s): J96.01 - Acute respiratory failure with hypoxia (2) Diabetes mellitus type 2, insulin dependent Status: Chronic Assessment and plan: Continue Accu-Chek blood glucose monitoring. Blood sugars are noted to be very elevated, will start basal insulin and continue sliding scale insulin. Diabetic diet. (3) Atrial fibrillation with rapid ventricular response Status: Acute Assessment and plan: Heart rate is noted to be better controlled. Currently off IV Cardizem drip. Cardiology follow-up appreciated, currently signed off. Continue increased dose of carvedilol. Continue long-term anticoagulation with Xarelto. (4) General weakness Status: Chronic Assessment and plan: Physical therapy evaluation recommends placement for inpatient rehabilitation, cardiology had a discussion with patient and family, currently agreeable to placement. support services rep consult. (5) CAD (coronary artery disease) Status: Chronic Qualifiers: Coronary Disease-Associated Artery/Lesion type: [place] artery [place] vs. transplanted heart: [place] heart Associated angina: without angina Qualified Code(s): I25.10 - Atherosclerotic heart disease of [place] coronary artery without angina pectoris (6) Diastolic CHF Status: Chronic Qualifiers: Congestive heart failure chronicity: acute on chronic Qualified Code(s): I50.33 - Acute on chronic diastolic (congestive) heart failure - Subjective Interval history: Reports feeling better but continues to feel tired and does have exertional dyspnea. No vomiting or diarrhea or chest pain. Continues to require supplemental oxygen. - Constitutional Vitals: Temp Pulse Resp BP Pulse Ox 97.4 F L 105 18 108/54 99 07/17/16 16:00 07/17/16 18:00 07/17/16 18:00 07/17/16 18:00 07/17/16 18:00 General appearance: Present: A&O X 3, morbidly obese, answers questions appropriately - Respiratory Respiratory exam: Present: CTAB. Absent: accessory muscle use, rales, rhonchi, wheezes - Cardiovascular Cardiovascular exam: Present: irregular rhythm, +S1, +S2. Absent: diastolic murmur, gallop, rubs, systolic murmur - GI/Abdominal GI/Abdominal exam: Present: normal bowel sounds, soft (Obese), no peritoneal signs. Absent: distended, tenderness - Extremities Exam Extremities exam: Present: pedal edema, warm, radial pulses palpable and symetrical. Absent: calf tenderness, cyanotic Internal Medicine: Result - Labs CBC & Chem 7: 07/17/16 18:57 07/16/16 04:03 Labs: Short CBC 07/17/16 Range/Units 18:57 Hgb 10.0 L (11.5-15.4) g/dL Hct 30.7 L (35.3-44.9) % - ABG Interpretation ABG results: ABG ABG pH 7.56 pH Units (7.32-7.45) H 07/17/16 11:10 ABG pCO2 25 mmHg (35-45) L 07/17/16 11:10 ABG pO2 81 mmHg (85-104) L 07/17/16 11:10 ABG O2 Saturation 97 % (95-98) 07/17/16 11:10 PT/INR, D-dimer PT 15.8 Seconds (9.4-12.1) H 07/13/16 20:47 - Impressions Impressions Head CT 07/17/16 15:58 IMPRESSION: Findings are concerning for small embolic acute infarcts within the left occipital lobe as well as also possibly in the left centrum semiovale. Further evaluation with MRI is recommended. D/ / 07/17/2016 18:05:48 Yohannes Madden MD / margaux Interpreting Provider: Yohannes Madden MD - VTE Reasons for not Prescribing Prophylaxis: Not indicated-Anticoagulated or INR therapeutic Consult Discharge Plan - Plan Referrals: Arnulfo Arango Jr, MD [Primary Care Provider] - (web request sent on 07/14/16)
--- NOTE | 2016-07-19 09:11 | Electrocardiograph Report ---
[address] [place] [address] Test Date: 2016-07-17 Pat Name: Cecilia Armas Department: 109 Room: [facility] Gender: F Bi Tester: MYRON : 1950 Requested By: Sadia Page Order Number: [id number] Reading MD: Abdirizak Chino MD Measurements Intervals [place] Rate: 110 P: UT: 0 QRS: 47 QRSD: 112 T: 65 QT: 359 QTc: 424 Interpretive Statements ATRIAL FIBRILLATION WITH RAPID VENTRICULAR RESPONSE INFERIOR MYOCARDIAL INFARCTION, PROBABLY OLD Electronically Signed On 07-19-2016 9:10:11 EDT by Abdirizak Chino MD
--- NOTE | 2016-07-19 17:47 | Internal Med Progress Note ---
Date of Encounter: 07/16/16 Time of Encounter: 12:00 - Assessment and plan (1) Acute respiratory failure Status: Acute Assessment and plan: This is a late entry progress note for 07/16/16. Likely related to atrial fibrillation with rapid ventricular response. Chest x- ray showed no evidence of pneumonia. Continue supplemental oxygen and wean down FiO2 as tolerated. Patient is noted to have leukocytosis, slightly improved today, could be related to stress response from atrial arrhythmia/ steroid use/respiratory failure, however also noted to have low-grade fevers. We will check urinalysis for underlying UTI. Continue to monitor. Qualifiers: Respiratory failure complication: hypoxia Qualified Code(s): J96.01 - Acute respiratory failure with hypoxia (2) Diabetes mellitus type 2, insulin dependent Status: Chronic Assessment and plan: Continue Accu-Chek blood glucose monitoring. Blood sugars are noted to be better controlled today. Continue basal bolus insulin regimen. Diabetic diet. (3) Atrial fibrillation with rapid ventricular response Status: Acute Assessment and plan: Heart rate is noted to be better controlled. Cardiology follow-up appreciated, currently signed off. Continue increased dose of carvedilol. Continue long- term anticoagulation with Xarelto. (4) General weakness Status: Chronic Assessment and plan: Physical therapy evaluation recommends placement for inpatient rehabilitation, cardiology had a discussion with patient and family, currently agreeable to placement. business services sales representative consult. (5) CAD (coronary artery disease) Status: Chronic Qualifiers: Coronary Disease-Associated Artery/Lesion type: [place] artery [place] vs. transplanted heart: [place] heart Associated angina: without angina Qualified Code(s): I25.10 - Atherosclerotic heart disease of [place] coronary artery without angina pectoris (6) Diastolic CHF Status: Chronic Qualifiers: Congestive heart failure chronicity: acute on chronic Qualified Code(s): I50.33 - Acute on chronic diastolic (congestive) heart failure - Subjective Interval history: Reports feeling better but continues to feel tired and does have exertional dyspnea. No vomiting or diarrhea or chest pain. Continues to require supplemental oxygen. Also noted to have low-grade fever with maximum temperature of 100.2 overnight. - Constitutional Vitals: Temp Pulse Resp BP Pulse Ox 97.4 F L 105 18 108/54 99 07/17/16 16:00 07/17/16 18:00 07/17/16 18:00 07/17/16 18:00 07/17/16 18:00 General appearance: Present: A&O X 3, morbidly obese, answers questions appropriately - Respiratory Respiratory exam: Present: CTAB. Absent: accessory muscle use, rales, rhonchi, wheezes - Cardiovascular Cardiovascular exam: Present: irregular rhythm, +S1, +S2. Absent: diastolic murmur, gallop, rubs, systolic murmur - GI/Abdominal GI/Abdominal exam: Present: normal bowel sounds, soft, no peritoneal signs. Absent: distended, tenderness - Extremities Exam Extremities exam: Present: full ROM, pedal edema, warm, radial pulses palpable and symetrical. Absent: calf tenderness, cyanotic - Neurological Exam Neurological exam: Present: CN II-XII intact, oriented X3, no focal deficits. Absent: pronater drift, facial droop, speech deficit Internal Medicine: Result - Labs CBC & Chem 7: 07/17/16 18:57 07/16/16 04:03 - ABG Interpretation ABG results: ABG ABG pH 7.56 pH Units (7.32-7.45) H 07/17/16 11:10 ABG pCO2 25 mmHg (35-45) L 07/17/16 11:10 ABG pO2 81 mmHg (85-104) L 07/17/16 11:10 ABG O2 Saturation 97 % (95-98) 07/17/16 11:10 PT/INR, D-dimer PT 15.8 Seconds (9.4-12.1) H 07/13/16 20:47 - Impressions Impressions Head CT 07/17/16 15:58 IMPRESSION: Findings are concerning for small embolic acute infarcts within the left occipital lobe as well as also possibly in the left centrum semiovale. Further evaluation with MRI is recommended. D/ / 07/17/2016 18:05:48 Yohannes Madden MD / margaux Interpreting Provider: Yohannes Madden MD - VTE Reasons for not Prescribing Prophylaxis: Not indicated-Anticoagulated or INR therapeutic Consult Discharge Plan - Plan Referrals: Arnulfo Arango Jr, MD [Primary Care Provider] - (web request sent on 07/14/16)
[2016-07-20 10:32] VITALS: BP 108/54
== END 2016-07-17 19:25 | disposition critical access hospital (66) | DRG 871 ==
LOC: 2ANU 20:13 → EMEROO 20:13 → 2ANU 07-14 00:34 → SUATTDRO 07-14 02:49 → ICNU 07-17 13:10
PROVIDERS: ADMIT Internal Medicine; ATTEND Internal Medicine